=== PATIENT | female | born 2000 | race Caucasian/White ===

== ENCOUNTER 2018-08-22 13:57 | Emergency (ER) | payer OTHER ==
[2018-08-22 15:07] LABS: Appearance SLIGHTLY CLOUDY (CLEAR); Bilirubin NEGATIVE (NEGATIVE); Blood NEGATIVE Ery/ul (0-5); Epithelial Cells RARE /HPF (FEW); Glucose NEGATIVE (NEGATIVE); Ketones NEGATIVE (NEGATIVE); Leukocyte Esterase NEGATIVE (NEGATIVE); Mucus SLIGHT /HPF (NEGATIVE); Nitrite NEGATIVE (NEGATIVE); Protein,Urine Dip NEGATIVE (Negative); Specific Gravity 1.013 (1.005-1.025); Urobilinogen NEGATIVE mg/dL (0-1)
[2018-08-22 15:31] VITALS: O2SAT 99
--- NOTE | 2018-08-22 16:24 | XRAY ---
Indication: Spotting. Two-dimensional transabdominal early OB ultrasound performed. Comparison: One day earlier Again there is a single viable intrauterine measuring 11 weeks 1 day with heart rate 169 BPM. Left and right ovaries unremarkable. No new/acute findings.
--- NOTE | 2018-08-22 16:40 | ERPHSYRPT ---
- History of Present Illness Source: patient Exam Limitations: no limitations Patient Subjective Stated Complaint: pt ambulated to treatment area complaining of abd cramping and vaginal bleeding. states cramping feels like a pulling, quick sharp pain, bleeding is light pink to brown, very light, noticed when she wipes. Dr. Mendez told her to come to the ER or call if any problems. pt states she had a miscarriage this summer 2017 Triage Nursing Assessment: Pt ambulated to treatment room, denies pain at this time, states pain is intermittent and sharp and quick. abd SNT with + BS. urine sample obtained clear yellow urine noted. states some pink, brown tinged mucous discharge when she wipes. skin smith, warm and dry. Physician History: Pt is a 18 y/o with a previous miscarriage. She is now again at 14 weeks, and she had some spotting and had some cramping in her abdomen, and decided to come to the ER to be evaluated. Timing/Duration: today Activites at Onset: none Quality: cramping Pain Radiation: none Severity of Pain-Max: mild Severity of Pain-Current: mild Modifying Factors: Improves With: nothing Associated Symptoms: denies symptoms Allergies/Adverse Reactions: polystyrene sulfonate Adverse Reaction (Verified 08/22/18 14:22) Home Medications: Vits W-Ca,Fe,FA(<1Mg) [] 1 each PO DAILY 08/22/18 [History] Hx Tetanus, Diphtheria Vaccination/Date Given: Yes Hx Influenza Vaccination/Date Given: No Hx Pneumococcal Vaccination/Date Given: No - Review of Systems Constitutional: No Fever, No Chills Respiratory: No Cough, No Dyspnea Cardiac: No Chest Pain, No Edema, No Syncope Abdominal/Gastrointestinal: No Abdominal Pain, No Nausea, No Vomiting, No Diarrhea Genitourinary Symptoms: (spotting) - Past Medical History Pertinent Past Medical History: No Neurological History: No Pertinent History ENT History: No Pertinent History Cardiac History: No Pertinent History Respiratory History: No Pertinent History Endocrine Medical History: No Pertinent History Musculoskeletal History: No Pertinent History GI Medical History: No Pertinent History History: No Pertinent History Psycho-Social History: No Pertinent History Female Reproductive Disorders: No Pertinent History - Past Surgical History Neuro Surgical History: No Pertinent History Cardiac: No Pertinent History Respiratory: No Pertinent History Gastrointestinal: No Pertinent History Genitourinary: No Pertinent History Musculoskeletal: No Pertinent History Female Surgical History: Dilation & Curettage Other Surgical History: D&C from miscarriage summer 2017 - Social History Smoking Status: Never smoker Exposure to second hand smoke: No Drug Use: none Patient Lives Alone: No - Female History Hx Last Menstrual Period: June 06, 2018 Hx Now: Yes Expected Date of Delivery: 03/12/19 Gestational Age: 11 weeks - Nursing Vital Signs Nursing Vital Signs: Initial Vital Signs Temperature 98.3 F 08/22/18 13:58 Pulse Rate 82 08/22/18 13:58 Respiratory Rate 16 08/22/18 13:58 Blood Pressure 134/83 08/22/18 13:58 O2 Sat by Pulse Oximetry 95 08/22/18 13:58 Pain Scale Pain Intensity 3 - Physical Exam General Appearance: no apparent distress, alert Respiratory Exam: normal breath sounds, lungs clear, No respiratory distress Cardiovascular Exam: regular rate/rhythm, normal heart sounds, normal peripheral pulses Gastrointestinal/Abdomen Exam: soft, No tenderness, No mass SpO2: 99 - Course Nursing assessment & vital signs reviewed: Yes Ordered Tests: Active Orders 24 hr Category Date Time Status OB <14 WKS 1ST GESTATION [US] Stat Exams 08/22/18 14:29 Completed HCG QUALITATIVE,SERUM Stat Lab 08/22/18 15:00 Completed HCG, Quantitative (Inhouse) Stat Lab 08/22/18 15:41 Completed UA W/RFX UR CULTURE Stat Lab 08/22/18 14:29 Completed Lab/Rad Data: Laboratory Results 08/22/18 08/22/18 08/22/18 Range/Units 15:41 15:00 14:29 Beta HCG, Quant [id number] mIU/ml Serum , Qual POSITIVE (Negative) Urine Color YELLOW (YELLOW) Urine Appearance SLIGHTLY CLOUDY (CLEAR) Urine pH 6.0 (5-6) Ur Specific [place] 1.013 (1.005-1.025) Urine Protein NEGATIVE (Negative) Urine Ketones NEGATIVE (NEGATIVE) Urine Blood NEGATIVE (0-5) [place]/ul Urine Nitrite NEGATIVE (NEGATIVE) Urine Bilirubin NEGATIVE (NEGATIVE) Urine Urobilinogen NEGATIVE (0-1) mg/dL Ur Leukocyte Esterase NEGATIVE (NEGATIVE) Urine WBC (Auto) NONE (0-5) /HPF Urine RBC (Auto) NONE (0-2) /HPF U Epithel Cells (Auto) RARE (FEW) /HPF Urine Mucus (Auto) SLIGHT (NEGATIVE) /HPF Urine Culture Reflexed NO (NO) Urine Glucose NEGATIVE (NEGATIVE) mg/dL - Progress Progress: improved Air Movement: good Progress Note: 08/22/18 16:39 Pt had a repeat US that showed viable . HCG levels are normal for gestational age. Pt is free for d/c. Blood Culture(s) Obtained: No Antibiotics given: No Will see patient in: office Counseled pt/family regarding: need for follow-up - Departure Time of Disposition: 16:40 Departure Disposition: Home Clinical Impression: Vaginal spotting Condition: Stable Critical Care Time: No Referrals: PADMINI MENDEZ MD [Primary Care Provider] -
[2018-08-22 17:03] VITALS: BP 116/70; PULSE 74
== END 2018-08-22 17:02 | disposition home or self-care (01) ==
LOC: ED 13:57
DX: O26.851 Spotting complicating pregnancy, first trimester (principal)
CPT/HCPCS: 36415; 76801; 81001; 81025; 84702; 99284

== ENCOUNTER 2018-09-17 10:51 | Emergency (ER) | payer OTHER ==
[2018-09-17] MEDS ORDERED: Sodium Chloride 0.9% 1000 ML 1,000 ML ONE (11:41)
[2018-09-17] MEDS: Sodium Chloride 0.9% 1000 ML 1,000 ML IV STA (11:43)
[2018-09-17 11:57] LABS: BASOPHIL % 0.2 % (0.0-0.4); Basophil (Absolute #) 0.02 (0-0.4); Granulocyte Absolute (ANC) 7.25 (1.4-6.9); Hematocrit 34.7 % (35-47); Hemoglobin 12.3 gm/dl (12.0-16.0); Lymphocyte (Absolute #) 1.46 (1.0-4.6); Lymphocytes % 15.3 % (24.0-44.0); Mean Cell Volume 91.8 fl (78-100); Mean Corpuscular Hemoglobin 32.5 pg (26-32); Mean Corpuscular Hgb Concent. 35.4 g/dl (32-36); Mean Platelet Volume 9.1 fl (6-9.5); Monocyte (Absolute #) 0.72 (0.0-1.3); Monocytes % 7.5 % (0.0-12.0); Platelet Count 239 K/mm3 (150-450); Red Blood Count 3.78 M/mm3 (4.1-5.4); Red Cell Distribution Width 12.8 % (11.5-14.0); White Blood Count 9.6 K/mm3 (4.0-10.5)
[2018-09-17 12:07] VITALS: O2SAT 100
[2018-09-17 12:08] LABS: Appearance CLOUDY (CLEAR); Bacteria MODERATE /HPF (NEGATIVE); Bilirubin NEGATIVE (NEGATIVE); Blood NEGATIVE Ery/ul (0-5); Epithelial Cells MODERATE /HPF (FEW); Glucose NEGATIVE (NEGATIVE); Ketones TRACE (NEGATIVE); Leukocyte Esterase LARGE (NEGATIVE); Mucus SLIGHT /HPF (NEGATIVE); Nitrite NEGATIVE (NEGATIVE); Protein,Urine Dip 30 (Negative); Specific Gravity 1.021 (1.005-1.025); Urobilinogen NEGATIVE mg/dL (0-1); WBC 26-50 /HPF (0-5)
[2018-09-17 12:21] LABS: ALBUMIN 3.9 g/dL (3.5-5.0); ALKALINE PHOSPHATASE 61 U/L (38-126); ANION GAP 11.3 MEQ/L (5-15); BLOOD UREA NITROGEN 10 mg/dL (7-17); CHLORIDE 106 mmol/L (98-107); Calcium 8.8 mg/dL (8.4-10.2); Carbon Dioxide 25 mmol/L (22-30); Creatinine 1 0.52 mg/dL (0.52-1.04); Glucose 74 mg/dL (74-106); SGOT/AST 23 U/L (14-36); SGPT/ALT 20 U/L (0-35); SODIUM 138 mmol/L (137-145); Total Protein 7.4 g/dL (6.3-8.2)
[2018-09-17 12:46] LABS: HCG, Quantitative (Inhouse) 74385 mIU/ml
[2018-09-17 13:10] VITALS: BP 119/74; PULSE 81
--- NOTE | 2018-09-17 13:10 | ERPHSYRPT ---
- History of Present Illness Source: patient Exam Limitations: no limitations Patient Subjective Stated Complaint: lower abd cramping since last night. is 14 weeks Triage Nursing Assessment: ambulated to room per self. skin w/d, color normal, resp easy. patient very tearful, explains that she had a miscarriage last summer and is very scared. abd soft. denies any bloody discharge. patient has bruising noted to right forearm. Physician History: Pt is a 18 y/o female that is 14 week , and she presented to the ED with complains of cramping. Pt denies dysuria, frequency or urgency and denies any vaginal bleeding. Pt states, started having severe cramping today, and secondary to h/o miscarriage, she presented to the ED. Timing/Duration: today Activites at Onset: none Quality: cramping Onset Location: RLQ, LLQ, low back pain Pain Radiation: none Severity of Pain-Max: moderate Severity of Pain-Current: moderate Prior abdominal problems: similar symptoms Modifying Factors: Improves With: nothing Associated Symptoms: denies symptoms Allergies/Adverse Reactions: polystyrene sulfonate Adverse Reaction (Verified 09/17/18 11:18) Home Medications: Vits W-Ca,Fe,FA(<1Mg) [] 1 each PO DAILY 08/22/18 [History] Hx Tetanus, Diphtheria Vaccination/Date Given: No Hx Influenza Vaccination/Date Given: No Hx Pneumococcal Vaccination/Date Given: No - Review of Systems Constitutional: No Fever, No Chills Respiratory: No Cough, No Dyspnea Cardiac: No Chest Pain, No Edema, No Syncope Abdominal/Gastrointestinal: No Abdominal Pain, No Nausea, No Vomiting, No Diarrhea Genitourinary Symptoms: Other (cramping in a female.) Musculoskeletal: Back Pain (lower back with cramping) - Past Medical History Pertinent Past Medical History: No Neurological History: No Pertinent History ENT History: No Pertinent History Cardiac History: No Pertinent History Respiratory History: No Pertinent History Endocrine Medical History: No Pertinent History Musculoskeletal History: No Pertinent History GI Medical History: No Pertinent History History: No Pertinent History Psycho-Social History: No Pertinent History Female Reproductive Disorders: No Pertinent History - Past Surgical History Past Surgical History: Yes Neuro Surgical History: No Pertinent History Cardiac: No Pertinent History Respiratory: No Pertinent History Gastrointestinal: No Pertinent History Genitourinary: No Pertinent History Musculoskeletal: No Pertinent History Female Surgical History: Dilation & Curettage Other Surgical History: D&C from miscarriage summer 2017 - Social History Smoking Status: Never smoker Exposure to second hand smoke: No Drug Use: none Patient Lives Alone: No - Female History Hx Now: Yes (14 weeks) - Nursing Vital Signs Nursing Vital Signs: Initial Vital Signs Temperature 97.7 F 09/17/18 11:01 Pulse Rate 92 H 09/17/18 11:01 Respiratory Rate 16 09/17/18 11:01 Blood Pressure 119/71 09/17/18 11:01 O2 Sat by Pulse Oximetry 99 09/17/18 11:01 Pain Scale Pain Intensity 7 - Physical Exam General Appearance: no apparent distress, alert Eye Exam: PERRL/EOMI, eyes nml inspection Ears, Nose, Throat Exam: normal ENT inspection, TMs normal, pharynx normal, moist mucous membranes Neck Exam: normal inspection, non-tender, supple, full range of motion Respiratory Exam: normal breath sounds, lungs clear, No respiratory distress Cardiovascular Exam: regular rate/rhythm, normal heart sounds, normal peripheral pulses Gastrointestinal/Abdomen Exam: soft, No tenderness, No mass Pelvic Exam: not done Back Exam: normal inspection, normal range of motion, No CVA tenderness, No vertebral tenderness Extremity Exam: normal inspection, normal range of motion, pelvis stable Neurologic Exam: alert, oriented x 3, cooperative, gaming commissioner II-XII nml as tested, normal mood/affect, sensation nml, No motor deficits SpO2: 100 - Course Nursing assessment & vital signs reviewed: Yes - Radiology Ultrasound Exam OB Ultrasound: Other (Discussed with tech. Normal US for age of .) Ordered Tests: Active Orders 24 hr Category Date Time Status IV Insertion STAT Care 09/17/18 11:15 Active OB >14 WKS 1st GESTATION [US] Stat Exams 09/17/18 11:16 Taken CBC W DIFF Stat Lab 09/17/18 11:51 Completed CMP Stat Lab 09/17/18 11:51 Completed CULTURE,URINE Stat Lab 09/17/18 11:40 Received HCG, Quantitative (Inhouse) Stat Lab 09/17/18 11:51 Completed UA W/RFX UR CULTURE Stat Lab 09/17/18 11:40 Completed Medication Summary Discontinued Medications Generic Name Dose Route Start Last Admin Trade Name Freq PRN Reason Stop Dose Admin Sodium Chloride 1,000 mls @ 999 mls/hr 09/17/18 11:15 09/17/18 11:43 Sodium Chloride 0.9% 1000 Ml IV 09/17/18 12:15 999 mls/hr .Q1H1M STA Administration Sodium Chloride Confirm 09/17/18 11:41 Sodium Chloride 0.9% 1000 Ml Administered 09/17/18 11:42 Dose 1,000 mls @ ud .ROUTE .STK-MED ONE Lab/Rad Data: Laboratory Result Diagrams 09/17/18 11:51 09/17/18 11:51 Laboratory Results 09/17/18 09/17/18 09/17/18 Range/Units 11:51 11:51 11:40 WBC 9.6 (4.0-10.5) K/mm3 RBC 3.78 L (4.1-5.4) M/mm3 Hgb 12.3 (12.0-16.0) gm/dl Hct 34.7 L (35-47) % MCV 91.8 (78-100) fl MCH 32.5 H (26-32) pg MCHC 35.4 (32-36) g/dl RDW 12.8 (11.5-14.0) % Plt Count 239 (150-450) K/mm3 MPV 9.1 (6-9.5) fl Gran % 76.0 H (36.0-66.0) % Eos # (Auto) 0.10 (0-0.5) Absolute Lymphs (auto) 1.46 (1.0-4.6) Absolute Monos (auto) 0.72 (0.0-1.3) Lymphocytes % 15.3 L (24.0-44.0) % Monocytes % 7.5 (0.0-12.0) % Eosinophils % 1.0 (0.00-5.0) % Basophils % 0.2 (0.0-0.4) % Absolute Granulocytes 7.25 H (1.4-6.9) Basophils # 0.02 (0-0.4) Sodium 138 (137-145) mmol/L Potassium 4.0 (3.5-5.1) mmol/L Chloride 106 (98-107) mmol/L Carbon Dioxide 25 (22-30) mmol/L Anion Gap 11.3 (5-15) MEQ/L BUN 10 (7-17) mg/dL Creatinine 0.52 (0.52-1.04) mg/dL Estimated GFR > 60.0 ML/MIN Glucose 74 (74-106) mg/dL Calcium 8.8 (8.4-10.2) mg/dL Total Bilirubin 0.60 (0.2-1.3) mg/dL AST 23 (14-36) U/L ALT 20 (0-35) U/L Alkaline Phosphatase 61 (38-126) U/L Serum Total Protein 7.4 (6.3-8.2) g/dL Albumin 3.9 (3.5-5.0) g/dL Beta HCG, Quant 32258 mIU/ml Urine Color YELLOW (YELLOW) Urine Appearance CLOUDY (CLEAR) Urine pH 8.0 (5-6) Ur Specific [place] 1.021 (1.005-1.025) Urine Protein 30 (Negative) Urine Ketones TRACE (NEGATIVE) Urine Blood NEGATIVE (0-5) Eugene/ul Urine Nitrite NEGATIVE (NEGATIVE) Urine Bilirubin NEGATIVE (NEGATIVE) Urine Urobilinogen NEGATIVE (0-1) mg/dL Ur Leukocyte Esterase LARGE (NEGATIVE) Urine WBC (Auto) 26-50 (0-5) /HPF Urine RBC (Auto) NONE (0-2) /HPF U Epithel Cells (Auto) MODERATE (FEW) /HPF Urine Bacteria (Auto) MODERATE (NEGATIVE) /HPF Urine Mucus (Auto) SLIGHT (NEGATIVE) /HPF Urine Culture Reflexed YES (NO) Urine Glucose NEGATIVE (NEGATIVE) mg/dL - Progress Progress: improved Air Movement: good Progress Note: 09/17/18 13:10 Pt had lab work that were normal. Her UA showed UTI and US of OB was normal for age. Pt declined Cerftriaxone IV, but is willing to have PO ABX for her UTI. Pt should f/u with her OB next week. Blood Culture(s) Obtained: No Antibiotics given: Yes Will see patient in: office Counseled pt/family regarding: need for follow-up - Departure Time of Disposition: 13:13 Departure Disposition: Home Clinical Impression: Abdominal cramping, Abdominal cramping affecting Condition: Stable Critical Care Time: No Referrals: PADMINI MENDEZ MD [Primary Care Provider] - Additional Instructions: Take ABX as ordered, and f/u with Ob. Prescriptions: Cefdinir [Omnicef] 300 mg PO BID 7 Days #14 capsule
--- NOTE | 2018-09-17 21:39 | XRAY ---
Indication: Cramping. Two-dimensional OB ultrasound performed. Comparison: August 22, 2018. Again there is a single viable intrauterine . Normal 4 chamber heart with heart rate 157 BPM. Normal three-vessel cord and cord insertion. Composite gestational age is 14 weeks 6 days. Largest amniotic pocket is 3.4 cm. Posterior placenta without abruption/previa. Cervix is closed and 3.5 cm in length. Impression: Again single viable intrauterine with mean gestational age 14 weeks 6 days. Normal progression of . No new/acute findings. Comment: Preliminary report was given.
== END 2018-09-17 13:27 | disposition home or self-care (01) ==
LOC: ED 10:51
DX: O26.892 Other specified pregnancy related conditions, second trimester (principal); Z3A.14 14 weeks gestation of pregnancy; R10.9 Unspecified abdominal pain
CPT/HCPCS: 36000; 36415; 76805; 80053; 81001; 84702; 85025; 87086; 96360; 99284

== ENCOUNTER 2019-01-05 20:10 | Observation (INO) | payer OTHER ==
[2019-01-05 20:42] LABS: Appearance SLIGHTLY CLOUDY (CLEAR); Bacteria RARE /HPF (NEGATIVE); Bilirubin NEGATIVE (NEGATIVE); Blood NEGATIVE Ery/ul (0-5); Epithelial Cells FEW /HPF (FEW); Glucose NEGATIVE (NEGATIVE); Ketones TRACE (NEGATIVE); Leukocyte Esterase LARGE (NEGATIVE); Mucus SLIGHT /HPF (NEGATIVE); Nitrite NEGATIVE (NEGATIVE); Protein,Urine Dip NEGATIVE (Negative); RBC 0-2 /HPF (0-2); Specific Gravity 1.015 (1.005-1.025); Urobilinogen NEGATIVE mg/dL (0-1); WBC 26-50 /HPF (0-5)
[2019-01-05] MEDS ORDERED: Lactated Ringers 1,000 ML IV ONE (21:47)
[2019-01-05] MEDS ORDERED: Lactated Ringers 1,000 ML IV SCH (22:00)
[2019-01-05] MEDS ORDERED: ROCEPHIN 1 Gm-D5w 50 ml Bag** 1 G/50 ML IVPB IV ONE (22:00)
[2019-01-05 22:24] LABS: Granulocyte Absolute (ANC) 12.37 (1.4-6.9); Hematocrit 33.7 % (35-47); Hemoglobin 11.6 gm/dl (12.0-16.0); Mean Cell Volume 96.8 fl (78-100); Mean Corpuscular Hemoglobin 33.3 pg (26-32); Mean Corpuscular Hgb Concent. 34.4 g/dl (32-36); Mean Platelet Volume 9.3 fl (6-9.5); Platelet Count 224 K/mm3 (150-450); Red Blood Count 3.48 M/mm3 (4.1-5.4); Red Cell Distribution Width 12.4 % (11.5-14.0); White Blood Count 16.5 K/mm3 (4.0-10.5)
[2019-01-05] MEDS ORDERED: Colace 100 MG ONE (22:24)
[2019-01-05 22:35] LABS: ALBUMIN 3.3 g/dL (3.5-5.0); ALKALINE PHOSPHATASE 105 U/L (38-126); ANION GAP 9.8 MEQ/L (5-15); BLOOD UREA NITROGEN 6 mg/dL (7-17); CHLORIDE 105 mmol/L (98-107); Calcium 8.5 mg/dL (8.4-10.2); Carbon Dioxide 25 mmol/L (22-30); Glucose 87 mg/dL (74-106); Potassium 3.5 mmol/L (3.5-5.1); SGOT/AST 19 U/L (14-36); SGPT/ALT 14 U/L (0-35); SODIUM 137 mmol/L (137-145); Total Protein 6.6 g/dL (6.3-8.2)
[2019-01-05 22:53] LABS: Eosinophil 1 % (0.00-3.0); Lymphocytes 22 % (24-44); Monocyte 7 % (0.0-12.0); Neutrophils 70 % (36.0-66.0); Platelet Estimate NORMAL (NORMAL); Total Cells Counted 100
[2019-01-06 06:47] VITALS: BP 107/60; PULSE 83
[2019-01-06] MEDS ORDERED: Colace 100 MG PO ONE (22:23)
== END 2019-01-05 23:39 | disposition home or self-care (01) ==
LOC: OB 20:10
PROVIDERS: ADMIT Family Medicine; ATTEND Family Medicine
DX: Z34.83 Encounter for supervision of other normal pregnancy, third trimester (principal)
CPT/HCPCS: 36415; 80053; 81001; 82962; 85025; 87086; G0378; J0696; A9270-GY

== ENCOUNTER 2019-02-16 22:21 | Observation (INO) | payer OTHER ==
[2019-02-16 23:10] LABS: Appearance CLEAR (CLEAR); Bacteria NONE SEEN /HPF (NEGATIVE); Bilirubin NEGATIVE (NEGATIVE); Blood NEGATIVE Ery/ul (0-5); Epithelial Cells RARE /HPF (FEW); Glucose NEGATIVE (NEGATIVE); Ketones NEGATIVE (NEGATIVE); Leukocyte Esterase SMALL (NEGATIVE); Mucus SLIGHT /HPF (NEGATIVE); Nitrite NEGATIVE (NEGATIVE); Protein,Urine Dip NEGATIVE (Negative); Specific Gravity 1.008 (1.005-1.025); Urobilinogen NEGATIVE mg/dL (0-1)
[2019-02-16 23:19] VITALS: O2SAT 97
[2019-02-17 00:04] LABS: Hematocrit 33.5 % (35-47); Hemoglobin 11.4 gm/dl (12.0-16.0); Mean Cell Volume 94.6 fl (78-100); Mean Corpuscular Hemoglobin 32.2 pg (26-32); Platelet Count 211 K/mm3 (150-450); Red Blood Count 3.54 M/mm3 (4.1-5.4); Red Cell Distribution Width 12.7 % (11.5-14.0); White Blood Count 12.1 K/mm3 (4.0-10.5)
[2019-02-17 00:33] VITALS: BP 113/57; PULSE 85
[2019-02-17 00:38] LABS: ALBUMIN 3.4 g/dL (3.5-5.0); ALKALINE PHOSPHATASE 141 U/L (38-126); ANION GAP 11.2 MEQ/L (5-15); BLOOD UREA NITROGEN 8 mg/dL (7-17); CHLORIDE 109 mmol/L (98-107); Calcium 8.9 mg/dL (8.4-10.2); Carbon Dioxide 21 mmol/L (22-30); Creatinine 1 0.46 mg/dL (0.52-1.04); Glucose 79 mg/dL (74-106); SGOT/AST 24 U/L (14-36); SGPT/ALT 14 U/L (0-35); SODIUM 138 mmol/L (137-145); Total Protein 6.7 g/dL (6.3-8.2); Uric Acid 4.8 mg/dL (2.6-6.0)
[2019-02-17 01:05] LABS: BAND 2 % (0.0-2.0); Lymphocytes 16 % (24-44); Monocyte 15 % (0.0-12.0); Neutrophils 67 % (36.0-66.0); Platelet Estimate NORMAL (NORMAL); Total Cells Counted 100
== END 2019-02-17 01:24 | disposition home or self-care (01) ==
LOC: OB 22:21
PROVIDERS: ADMIT Family Medicine; ATTEND Family Medicine
DX: Z34.83 Encounter for supervision of other normal pregnancy, third trimester (principal)
CPT/HCPCS: 36415; 80053; 81001; 84550; 85025; G0378

== ENCOUNTER 2019-02-22 10:01 | Observation (INO) | payer OTHER ==
[2019-02-22 11:07] VITALS: BP 119/65; PULSE 99; O2SAT 98
--- NOTE | 2019-02-22 11:38 | XRAY ---
Indication: Evaluate ERUM. Limited OB ultrasound performed to evaluate ERUM. There is a single viable intrauterine with heart rate 153 BPM. Four-quadrant ERUM is 16.8 cm, previously 10.3 cm October 16, 2018.
[2019-02-22 12:50] LABS: Amphetamine,Urine NEGATIVE (NEGATIVE); Barbiturate,Urine NEGATIVE (NEGATIVE); Benzodiazepine,Urine NEGATIVE (NEGATIVE); Cocaine,Urine NEGATIVE (NEGATIVE); Methadone,Urine NEGATIVE (NEGATIVE); Opiate,Urine NEGATIVE (NEGATIVE); PCP,Urine NEGATIVE (NEGATIVE); THC,Urine NEGATIVE (NEGATIVE)
== END 2019-02-22 13:25 | disposition home or self-care (01) ==
LOC: OB 10:01
PROVIDERS: ADMIT Family Medicine; ATTEND Family Medicine
DX: Z34.83 Encounter for supervision of other normal pregnancy, third trimester (principal)
CPT/HCPCS: 59025; 76815; 80307; G0378

== ENCOUNTER 2019-02-27 10:39 | Observation (INO) | payer OTHER ==
[2019-02-27 10:54] VITALS: O2SAT 98
[2019-02-27 11:52] VITALS: BP 113/71; PULSE 94
[2019-02-27] MEDS ORDERED: Lactated Ringers 1,000 ML IV ONE (11:55)
[2019-02-27 12:17] LABS: Hematocrit 34.3 % (35-47); Hemoglobin 11.6 gm/dl (12.0-16.0); Mean Cell Volume 93.5 fl (78-100); Mean Corpuscular Hemoglobin 31.6 pg (26-32); Mean Corpuscular Hgb Concent. 33.8 g/dl (32-36); Mean Platelet Volume 9.8 fl (6-9.5); Platelet Count 195 K/mm3 (150-450); Red Blood Count 3.67 M/mm3 (4.1-5.4); Red Cell Distribution Width 12.9 % (11.5-14.0); White Blood Count 10.6 K/mm3 (4.0-10.5)
[2019-02-27 12:29] LABS: ALBUMIN 3.5 g/dL (3.5-5.0); ALKALINE PHOSPHATASE 159 U/L (38-126); ANION GAP 12.6 MEQ/L (5-15); BLOOD UREA NITROGEN 6 mg/dL (7-17); CHLORIDE 110 mmol/L (98-107); Calcium 8.8 mg/dL (8.4-10.2); Carbon Dioxide 20 mmol/L (22-30); Creatinine 1 0.39 mg/dL (0.52-1.04); Glucose 83 mg/dL (74-106); Potassium 3.8 mmol/L (3.5-5.1); SGOT/AST 22 U/L (14-36); SGPT/ALT 14 U/L (0-35); SODIUM 139 mmol/L (137-145); Total Protein 6.9 g/dL (6.3-8.2)
[2019-02-27 12:36] LABS: Appearance CLEAR (CLEAR); Bacteria RARE /HPF (NEGATIVE); Bilirubin NEGATIVE (NEGATIVE); Blood NEGATIVE Ery/ul (0-5); Epithelial Cells RARE /HPF (FEW); Glucose NEGATIVE (NEGATIVE); Ketones NEGATIVE (NEGATIVE); Leukocyte Esterase MODERATE (NEGATIVE); Nitrite NEGATIVE (NEGATIVE); Protein,Urine Dip NEGATIVE (Negative); Specific Gravity 1.004 (1.005-1.025); Urobilinogen NEGATIVE mg/dL (0-1)
[2019-02-27 13:12] LABS: BAND 2 % (0.0-2.0); Lymphocytes 16 % (24-44); Monocyte 3 % (0.0-12.0); Neutrophils 79 % (36.0-66.0); Platelet Estimate NORMAL (NORMAL); Total Cells Counted 100; Toxic Granulation 1+
[2019-02-27] MEDS ORDERED: Lactated Ringers 1,000 ML IV SCH (14:30)
== END 2019-02-27 14:55 | disposition home or self-care (01) ==
LOC: ED 10:39 → OB 11:05
PROVIDERS: ADMIT Family Medicine; ATTEND Family Medicine
DX: O26.893 Other specified pregnancy related conditions, third trimester (principal); E86.0 Dehydration; R19.7 Diarrhea, unspecified; Z3A.39 39 weeks gestation of pregnancy
CPT/HCPCS: 36415; 80053; 81001; 85025; 96360; 99283; G0378

== ENCOUNTER 2019-03-13 08:36 | Inpatient (IN) | payer OTHER ==
[2019-03-13] MEDS ORDERED: BRETHINE 1 MG/ML SQ PRN (16:48)
[2019-03-13 17:26] LABS: Amphetamine,Urine NEGATIVE (NEGATIVE); Barbiturate,Urine NEGATIVE (NEGATIVE); Benzodiazepine,Urine NEGATIVE (NEGATIVE); Cocaine,Urine NEGATIVE (NEGATIVE); Methadone,Urine NEGATIVE (NEGATIVE); Opiate,Urine NEGATIVE (NEGATIVE); PCP,Urine NEGATIVE (NEGATIVE); THC,Urine NEGATIVE (NEGATIVE)
[2019-03-13] MEDS ORDERED: Cervidil 10 MG VAG SCH (18:00)
[2019-03-13 19:53] LABS: Hematocrit 33.6 % (35-47); Hemoglobin 11.3 gm/dl (12.0-16.0); Mean Cell Volume 91.8 fl (78-100); Mean Corpuscular Hgb Concent. 33.6 g/dl (32-36); Platelet Count 213 K/mm3 (150-450); Red Blood Count 3.66 M/mm3 (4.1-5.4); Red Cell Distribution Width 13.3 % (11.5-14.0); White Blood Count 12.2 K/mm3 (4.0-10.5)
[2019-03-13 19:59] LABS: Mean Corpuscular Hemoglobin 30.8 pg (26-32)
[2019-03-13 23:59] LABS: Basophil 1 % (0.0-1.0); Eosinophil 4 % (0.00-3.0); Lymphocytes 16 % (24-44); Monocyte 3 % (0.0-12.0); Neutrophils 76 % (36.0-66.0); Total Cells Counted 100
[2019-03-14] LABS: Platelet Estimate NORMAL (NORMAL); Poikilocytosis 1+; Polychromasia RARE
[2019-03-14] MEDS ORDERED: XYLOCAINE 1% HCL 20 ML MDV IJ PRN (05:17)
[2019-03-14] MEDS ORDERED: Zofran 4 MG/2 ML VIAL IV PRN (05:17)
[2019-03-14] MEDS ORDERED: Phenergan 25 MG INJ IV PRN (05:17)
[2019-03-14] MEDS ORDERED: TYLENOL EXTRA STRENGTH 500 MG PO PRN (05:17)
[2019-03-14] MEDS ORDERED: PITOCIN 30 UNITS/ LR 500 ML 500 ML IV SCH ×2 (05:30)
[2019-03-14] MEDS: Lactated Ringers 1,000 ML IV SCH ×4 (07:27→20:23)
[2019-03-14] MEDS ORDERED: Lactated Ringers 1,000 ML IV ONE (16:56)
[2019-03-14] MEDS ORDERED: OB EPIDURAL NAROPIN/SUFENTANIL IN NACL EPIDURAL PRN (16:56)
[2019-03-14] MEDS ORDERED: Ephedrine Sulfate 50 MG/ML IV PRN (16:56)
[2019-03-14] MEDS ORDERED: XYLOCAINE 2%/Epi 1:200000 20ML VIAL MPF ONE ×2 (18:22→20:59)
[2019-03-14] MEDS ORDERED: Reglan 10 MG/2 ML IV SCH (20:15)
[2019-03-14] MEDS ORDERED: BICITRA 30 ML CUP PO SCH (20:15)
[2019-03-14] MEDS ORDERED: Pepcid 20 MG VIAL IV SCH (20:15)
[2019-03-14] MEDS ORDERED: Lactated Ringers 1,000 ML IV SCH (20:30)
[2019-03-14] MEDS ORDERED: CEFAZOLIN 2 GM-D5W BAG** 2 GM/50 ML ML IV SCH (20:30)
[2019-03-14 20:35] LABS: Hematocrit 35.4 % (35-47); Hemoglobin 11.8 gm/dl (12.0-16.0); Mean Cell Volume 93.4 fl (78-100); Mean Corpuscular Hemoglobin 31.1 pg (26-32); Mean Corpuscular Hgb Concent. 33.3 g/dl (32-36); Mean Platelet Volume 9.9 fl (6-9.5); Platelet Count 204 K/mm3 (150-450); Red Blood Count 3.79 M/mm3 (4.1-5.4); Red Cell Distribution Width 13.2 % (11.5-14.0)
[2019-03-14 20:39] LABS: Appearance CLEAR (CLEAR); Bilirubin NEGATIVE (NEGATIVE); Blood MODERATE Ery/ul (0-5); Glucose NEGATIVE (NEGATIVE); Ketones TRACE (NEGATIVE); Leukocyte Esterase NEGATIVE (NEGATIVE); Nitrite NEGATIVE (NEGATIVE); Protein,Urine Dip NEGATIVE (Negative); Specific Gravity 1.004 (1.005-1.025); Urobilinogen NEGATIVE mg/dL (0-1)
[2019-03-14 20:46] LABS: INR 1.02 (0.8-3.0); PROTIME 11.5 SECONDS (9.95-12.35)
[2019-03-14 20:48] LABS: PTT 26.1 SECONDS (25.3-37.0)
[2019-03-14] MEDS ORDERED: Pitocin 10 UNITS/ML ONE (20:59)
[2019-03-14] MEDS ORDERED: Xylocaine-Mpf 2% 5 Ml Vial ONE (21:29)
[2019-03-14] MEDS ORDERED: Naropin 0.5% 30 ML VIAL ONE (21:29)
[2019-03-14] MEDS ORDERED: Decadron 4 MG INJ ONE (21:29)
[2019-03-14] MEDS ORDERED: Astramorph-Pf 5 MG/10 ML ONE (21:31)
[2019-03-14 22:59] LABS: ABO TYPING O; Antibody Screen NEGATIVE (NEGATIVE); RH TYPING POSITIVE
[2019-03-14] MEDS ORDERED: Phenergan 25 MG INJ IM PRN (23:15)
[2019-03-14] MEDS ORDERED: LANSINOH 40 GM TOP PRN (23:19)
[2019-03-14] MEDS ORDERED: Anucort-HC SUPPOSITORY PR PRN (23:19)
[2019-03-14] MEDS ORDERED: CORTISONE 1% CREAM TP PRN (23:19)
[2019-03-14] MEDS ORDERED: Mylicon 80MG PO PRN (23:19)
[2019-03-14] MEDS ORDERED: Restoril 15 MG PO PRN (23:19)
[2019-03-14] MEDS ORDERED: Ambien 10 MG PO PRN (23:19)
[2019-03-14] MEDS ORDERED: CLARITIN 10 MG PO PRN (23:22)
[2019-03-14] MEDS ORDERED: Nubain 10 MG/ML IV PRN (23:22)
[2019-03-14] MEDS ORDERED: HOLD NARCOTIC ANALGESICS AND SEDATIVES X24 HR MC PRN (23:22)
[2019-03-14] MEDS ORDERED: DEMEROL 50 MG IV PRN (23:22)
[2019-03-14] MEDS ORDERED: Narcan 0.4 MG/ML IV PRN (23:22)
[2019-03-14] MEDS ORDERED: MORPHINE SULFATE 2 MG INJ IV PRN (23:22)
[2019-03-14] MEDS ORDERED: BENADRYL 50 MG/ML IV PRN (23:22)
[2019-03-14] MEDS: MOTRIN 400 MG PO PRN (23:28)
[2019-03-15] MEDS: PERCOCET TABLET 5/325MG PO PRN ×6 (00:17→23:02)
[2019-03-15] MEDS: Dextrose 5%-Lr IV Solution 1000 ML 1,000 ML IV SCH ×2 (04:26→12:23)
[2019-03-15 05:02] LABS: Hematocrit 30.6 % (35-47); Hemoglobin 10.2 gm/dl (12.0-16.0); Mean Cell Volume 93.6 fl (78-100); Mean Corpuscular Hgb Concent. 33.3 g/dl (32-36); Mean Platelet Volume 10.7 fl (6-9.5); Platelet Count 185 K/mm3 (150-450); Red Blood Count 3.27 M/mm3 (4.1-5.4); Red Cell Distribution Width 13.1 % (11.5-14.0); White Blood Count 21.2 K/mm3 (4.0-10.5)
[2019-03-15 05:06] LABS: Mean Corpuscular Hemoglobin 31.1 pg (26-32)
[2019-03-15] MEDS: MOTRIN 400 MG PO PRN ×3 (05:28→18:11)
[2019-03-15 05:42] LABS: ANISOCYTOSIS RARE; BAND 7 % (0.0-2.0); Lymphocytes 6 % (24-44); Monocyte 3 % (0.0-12.0); Neutrophils 84 % (36.0-66.0); Platelet Estimate NORMAL (NORMAL); Poikilocytosis RARE; Polychromasia RARE; Total Cells Counted 100
--- NOTE | 2019-03-15 08:16 | OP ---
SURGERY DATE/TIME: 03/14/20192049 PREOPERATIVE DIAGNOSES: 1) Non-reassuring heart tones. 2) Term intrauterine . POSTOPERATIVE DIAGNOSES: 1) Non-reassuring heart tones. 2) Term intrauterine . PROCEDURE: Primary low transverse section. SURGEON: Lalito Rivera M.D. ANESTHESIA: Epidural by Donald Rubin CRNA. ESTIMATED BLOOD LOSS: 400 cc. IV FLUIDS: 2 liters of crystalloid. URINE OUTPUT: 600 cc clear straw-colored urine. SPECIMEN: Placenta was sent for pathology. DESCRIPTION OF PROCEDURE: After informed written consent was obtained, the patient was taken to the operating room. She had a previously placed laboring epidural which was bolused prior to the procedure. She was prepped and draped in the usual sterile fashion. After adequate level of anesthesia was assessed, a low transverse skin incision was made by knife and carried down to the subcutaneous fat to the level of the fascia. The fascia was nicked on both sides of the midline horizontal and extended in horizontal using curved Brown scissors. The superior free edge of the fascia was grasped with Thony clamps and the underlying rectus muscles were dissected free. The same was repeated inferiorly. The peritoneal cavity was then opened in horizontal fashion and extended bluntly. Bladder blade was inserted and a bladder flap was created and reflected over the lower uterine segment. Horizontal uterine incision was made by knife and carried down to the level of the amniotic membranes which were carefully artificially ruptured. A viable male infant with a nuchal cord x1 was reduced in vertex presentation. He voided and had meconium on the operative field. Oropharynx and nares were bulb suctioned free and he immediately had a strong cry and vigorous upon delivery. The cord was clamped and cut and he was handed off to the awaiting nursery team. The placenta was manually extracted from the uterus. The uterus was exteriorized. The uterine cavity was sponge curetted clean with a lap sponge and the uterine incision was closed with #1 chromic in a running locked fashion with good closure and good hemostasis. Posterior cul-de-sac was wiped free of blood and clot with a moist lap sponge and the uterus was then returned to the peritoneal cavity. The lateral gutters were wiped free of blood and clot. Again, the uterine incision was noted to have good closure and good hemostasis. Next, the fascia was closed with 0 Vicryl in a running fashion with good closure and good hemostasis were achieved there. The subcutaneous fat was irrigated with warm, sterile saline and any areas of bleeding were cauterized with electrocautery. Finally, the skin layer was closed with 4-0 undyed Vicryl in a running subcuticular fashion. Steri-Strips and occlusive dressing were placed over the incision. The patient was transferred to the recovery room in good condition.
[2019-03-15] MEDS ORDERED: M-M-R II Vaccine With Diluent SQ ONE (08:45)
[2019-03-15] MEDS ORDERED: Adacel Vial IM ONE (09:00)
[2019-03-15] MEDS: FERREX 150 PO SCH (09:09)
[2019-03-15] MEDS: Colace 100 MG PO SCH ×2 (09:09→21:41)
[2019-03-15 10:06] VITALS: O2SAT 99
[2019-03-15] MEDS ORDERED: DEMEROL 50 MG IV PRN (23:15)
[2019-03-15] MEDS ORDERED: NORCO 5/325 MG PO PRN (23:19)
[2019-03-16] MEDS: MOTRIN 400 MG PO PRN (02:56)
--- NOTE | 2019-03-16 08:07 | PCM.DS ---
Discharge Summary Date of Admission: 03/14/19 16:00 Admitting Physician: PADMINI MENDEZ Consults: Consults on Case 03/14/19 20:14 Notify Anesthesia Provider 03/14/19 20:16 Notify Physician OF ADMISSION Primary Care Provider: PADMINI MENDEZ Allergies Allergies polytracin Allergy (Severe, Uncoded 03/13/19 19:29) Medication given for pink eye. Medication caused eye to swell and become more reddened. Hospital Summary - Hospital Course Hospital Course: had primary c section for nonreassuring heart tones, no complications and has done well postoperatively. tolerating po, mild lochia, post -op pain is controlled. - Vitals & Intake/Output Vital Signs: Vital Signs Temperature 98.7 F 03/16/19 03:00 Pulse Rate 82 03/16/19 03:00 Respiratory Rate 16 03/16/19 03:00 Blood Pressure 94/50 03/16/19 03:00 O2 Sat by Pulse Oximetry 99 03/15/19 10:00 Intake & Output: Intake & Output 03/13/19 03/14/19 03/15/19 03/16/19 11:59 11:59 11:59 11:59 Intake Total 1375 4038 2463 Output Total 2500 Balance 1375 1538 2463 Weight 85.275 kg 85.275 kg - Lab Result Diagrams: 03/15/19 04:15 Lab Results-Last 24 Hrs: Lab Results-Last 24 Hours 03/13/19 Range/Units 13:01 Hep Bs Antigen Non Reactive (Non Reactive) Micro Results-Entire Visit: Microbiology 03/14/19 20:23 Urine Culture - Preliminary Catherized NO GROWTH TO DATE Discharge Exam General Appearance: no apparent distress, alert Eye Exam: PERRL Respiratory Exam: normal breath sounds, lungs clear, No respiratory distress Cardiovascular Exam: regular rate/rhythm, normal heart sounds Gastrointestinal/Abdomen Exam: other (incision clean, dry, intact) Extremity Exam: normal inspection, normal range of motion Skin Exam: normal color, warm, dry Final Diagnosis/Problem List - Final Discharge Diagnosis/Problem (1) delivery delivered Current Visit: Yes Status: Acute Code(s): O82 - ENCOUNTER FOR DELIVERY WITHOUT INDICATION (2) Mother currently breast-feeding Current Visit: Yes Status: Acute Code(s): XVQ1047 - - Discharge Disposition: Home, Self-Care Condition: Stable Prescriptions: New Breast Pump 1 each MC DAILY #1 each Hydrocodone/APAP 5-325 Tab^^^ [[place] 5-325 Tablet^^^] 1 tab PO Q6HPRN PRN # 28 tablet MDD 6 PRN Reason: Pain Continue Vits W-Ca,Fe,FA(<1Mg) [] 1 each PO DAILY Follow up with: PADMINI MENDEZ MD [Primary Care Provider] - 1 Week
[2019-03-16] MEDS: Colace 100 MG PO SCH (10:34)
[2019-03-16] MEDS: FERREX 150 PO SCH (10:34)
[2019-03-16 13:07] VITALS: BP 102/61; PULSE 91
== END 2019-03-16 12:20 | disposition home or self-care (01) | DRG 788 ==
LOC: OB 16:00 → OBSVTOIN 03-14 16:00
PROVIDERS: ADMIT Family Medicine; ATTEND Family Medicine
PROC: 10D00Z1 Extraction of Products of Conception, Low, Open Approach (ICD-10-PCS; principal; 2019-03-14)
DX: O76 Abnormality in fetal heart rate and rhythm complicating labor and delivery (principal); Z3A.40 40 weeks gestation of pregnancy; Z37.0 Single live birth
CPT/HCPCS: 36415; 64488; 76937; 76942; 80307; 81001; 85025; 85027; 85610; 85730; 86850; 86900; 86901; 87086; 87340; 88307; 90471; 90707; 90715; 94799; 96372; G0378; J0690; J1100; J2274; J2590; J2795; L0625; A9270-GY

== ENCOUNTER 2020-03-02 20:58 | Emergency (ER) | payer OTHER ==
[2020-03-02] MEDS ORDERED: XYLOCAINE 1% HCL 20 ML MDV IJ ONE (20:59)
--- NOTE | 2020-03-02 22:33 | ERPHSYRPT ---
- History of Present Illness Time Seen by Provider: 03/02/20 22:09 Source: patient Exam Limitations: no limitations Physician History: For the past week pt has had dysuria and hematuria; for the past 2 days low back pain; today fever up to 100.8 degrees and suprapubic pain. Allergies/Adverse Reactions: polytracin Allergy (Severe, Uncoded 03/02/20 23:03) Medication given for pink eye. Medication caused eye to swell and become more reddened. Home Medications: Norethindrone AC-Eth Estradiol [Microgestin 21 1.5-30 Tab] 1 tab PO DAILY 03/02/20 [History] Hx Tetanus, Diphtheria Vaccination/Date Given: No Hx Influenza Vaccination/Date Given: No Hx Pneumococcal Vaccination/Date Given: No Travel Risk - International Travel Have you traveled outside of the country in past 3 weeks: No (N) If Yes, where;: N - Coronavirus Screening Are you exhibiting any of the following symptoms?: No Symptoms: Fever Close contact with a COVID-19 positive Pt in past 14-21 Days: No - Review of Systems Constitutional: Fever Ears, Nose, & Throat: No Ear Pain, No Throat Pain Respiratory: No Dyspnea Cardiac: No Chest Pain Abdominal/Gastrointestinal: Abdominal Pain, No Nausea, No Vomiting, No Diarrhea Genitourinary Symptoms: Dysuria, Hematuria Musculoskeletal: Back Pain Neurological: No Headache All Other Systems: Reviewed and Negative - Past Medical History Pertinent Past Medical History: No Neurological History: No Pertinent History ENT History: No Pertinent History Cardiac History: No Pertinent History Respiratory History: No Pertinent History Endocrine Medical History: No Pertinent History Musculoskeletal History: No Pertinent History GI Medical History: No Pertinent History History: No Pertinent History Psycho-Social History: No Pertinent History Female Reproductive Disorders: No Pertinent History Other Medical History: History of ovarian cysts - Past Surgical History Past Surgical History: Yes Neuro Surgical History: No Pertinent History Cardiac: No Pertinent History Respiratory: No Pertinent History Gastrointestinal: No Pertinent History Genitourinary: No Pertinent History Musculoskeletal: No Pertinent History Female Surgical History: Dilation & Curettage Other Surgical History: D&C from miscarriage summer 2017 - Social History Smoking Status: Never smoker Exposure to second hand smoke: No Drug Use: none Patient Lives Alone: No - Nursing Vital Signs Nursing Vital Signs: Initial Vital Signs Temperature 97.8 F 03/02/20 22:59 Pulse Rate 88 03/02/20 22:59 Respiratory Rate 16 03/02/20 22:59 Blood Pressure 123/87 03/02/20 22:59 O2 Sat by Pulse Oximetry 96 03/02/20 22:59 Pain Scale Pain Intensity 6 - Physical Exam General Appearance: alert Eye Exam: PERRL/EOMI Ears, Nose, Throat Exam: pharynx normal, moist mucous membranes Neck Exam: normal inspection Respiratory Exam: lungs clear Cardiovascular Exam: normal heart sounds Gastrointestinal/Abdomen Exam: soft, normal bowel sounds Back Exam: No CVA tenderness Extremity Exam: No pedal edema Neurologic Exam: alert, cooperative - Course Nursing assessment & vital signs reviewed: Yes Ordered Tests: Active Orders 24 hr Category Date Time Status CULTURE,URINE Stat Lab 03/02/20 22:49 Received HCG,QUALITATIVE URINE Stat Lab 03/02/20 22:49 Completed UA W/RFX UR CULTURE Stat Lab 03/02/20 22:49 Completed Medication Summary Generic Name Dose Route Start Last Admin Trade Name Freq PRN Reason Stop Dose Admin Ceftriaxone Sodium 1,000 mg 03/03/20 00:13 Rocephin 1000 Mg Inj IM 03/03/20 00:14 STAT ONE Lab/Rad Data: Laboratory Results 03/02/20 03/02/20 Range/Units 22:49 22:49 Urine Color [place] (YELLOW) Urine Appearance CLEAR (CLEAR) Urine pH 6.0 (5-6) Ur Specific [place] 1.014 (1.005-1.025) Urine Protein NEGATIVE (Negative) Urine Ketones NEGATIVE (NEGATIVE) Urine Blood NEGATIVE (0-5) [place]/ul Urine Nitrite POSITIVE (NEGATIVE) Urine Bilirubin NEGATIVE (NEGATIVE) Urine Urobilinogen 4 (0-1) mg/dL Ur Leukocyte Esterase NEGATIVE (NEGATIVE) Urine WBC (Auto) 11-15 (0-5) /HPF Urine RBC (Auto) 3-5 (0-2) /HPF U Epithel Cells (Auto) NONE (FEW) /HPF Urine Bacteria (Auto) RARE (NEGATIVE) /HPF Amorphous Crystals FEW (NEGATIVE) /HPF Urine Culture Reflexed YES (NO) Urine Glucose NEGATIVE (NEGATIVE) mg/dL Urine HCG, Qual NEGATIVE (Negative) - Progress Progress: unchanged Counseled pt/family regarding: diagnosis - Departure Departure Disposition: Home Clinical Impression: UTI (urinary tract infection) Condition: Stable Critical Care Time: No Referrals: PADMINI MENDEZ MD [Primary Care Provider] - Instructions: Urinary Tract Infection, Adult (DC) Additional Instructions: Follow up with private doctor tomorrow. Prescriptions: Naproxen [Naprosyn] 500 mg PO [id number] PRN #20 tablet PRN Reason: Pain Nitrofurantoin Monohyd/M-Cryst [Macrobid 100 mg Capsule] 100 mg PO BID #14 capsule
[2020-03-02 22:58] LABS: Amourphous Crystal FEW /HPF (NEGATIVE); Appearance CLEAR (CLEAR); Bacteria RARE /HPF (NEGATIVE); Bilirubin NEGATIVE (NEGATIVE); Blood NEGATIVE Ery/ul (0-5); Glucose NEGATIVE (NEGATIVE); Ketones NEGATIVE (NEGATIVE); Leukocyte Esterase NEGATIVE (NEGATIVE); Nitrite POSITIVE (NEGATIVE); Protein,Urine Dip NEGATIVE (Negative); Specific Gravity 1.014 (1.005-1.025); Urobilinogen 4 mg/dL (0-1)
[2020-03-03] MEDS ORDERED: Rocephin 1000 MG INJ IM ONE (00:13)
[2020-03-03] MEDS ORDERED: Rocephin 1000 MG INJ ONE (00:27)
[2020-03-03 00:35] VITALS: BP 120/76; PULSE 65; O2SAT 97
== END 2020-03-03 00:42 | disposition home or self-care (01) ==
LOC: ED 20:58
DX: N39.0 Urinary tract infection, site not specified (principal)
CPT/HCPCS: 81001; 84703; 87077; 87086; 87186; 96372; 99284; J0696

== ENCOUNTER 2020-06-01 11:14 | Emergency (ER) | payer OTHER ==
[2020-06-01 12:02] LABS: Appearance SLIGHTLY CLOUDY (CLEAR); Bacteria FEW /HPF (NEGATIVE); Bilirubin NEGATIVE (NEGATIVE); Blood MODERATE Ery/ul (0-5); Epithelial Cells RARE /HPF (FEW); Glucose NEGATIVE (NEGATIVE); Ketones NEGATIVE (NEGATIVE); Leukocyte Esterase LARGE (NEGATIVE); Nitrite POSITIVE (NEGATIVE); Non-Squamous Epithelial Cells RARE /HPF (FEW); Protein,Urine Dip NEGATIVE (Negative); Specific Gravity 1.006 (1.005-1.025); Urobilinogen 4 mg/dL (0-1); WBC 51-100 /HPF (0-5)
[2020-06-01] MEDS ORDERED: BACTRIM DS TABLET PO STA (12:13)
--- NOTE | 2020-06-01 12:18 | ERPHSYRPT ---
- History of Present Illness Time Seen by Provider: 06/01/20 11:43 Source: patient Exam Limitations: no limitations Patient Subjective Stated Complaint: Abdominal pain Triage Nursing Assessment: Patient ambulated back to ED and transferred self to bed. Patient A+O X3. Patient's skin pink, warm and dry. Patient complains of lower abdominal pain for one week that has gotten worse. Patient states she was dx with a UTI last week and took all of her atb's. Patient complains of dysuria with frequency and urgency. Patient also states she has been having painful intercourse. Patient complains of lower abdominal pain 6/10. Abdomen soft and round with BS X 4. Physician History: 20 years old female presented in the ER with chief complaint of suprapubic pain for almost 1 week. Patient was recently treated outpatient with Macrobid for UTI. Patient reports increased frequency, urgency and sense of incomplete emptying with dysuria. She denies any vaginal bleeding and has usual discharge without any smell. No radiation of pain to the back are either right or left lower quadrants, rates 3/10 intensity, aggravated with urination and partial relief with taking Azo's. No nausea or vomiting. No fever or chills reported. Timing/Duration: week(s) (1), intermittent, gradual onset Activites at Onset: rest Quality: burning, dullness Onset Location: suprapubic, urethral Pain Radiation: none Severity of Pain-Max: moderate Severity of Pain-Current: mild Prior abdominal problems: UTI Sexual intercourse history: single partner Modifying Factors: Improves With: urinating Associated Symptoms: dysuria, urinary frequency Allergies/Adverse Reactions: polytracin Allergy (Severe, Uncoded 06/01/20 11:26) Medication given for pink eye. Medication caused eye to swell and become more reddened. Home Medications: Norethindrone AC-Eth Estradiol [Microgestin 21 1.5-30 Tab] 1 tab PO DAILY [History] Hx Tetanus, Diphtheria Vaccination/Date Given: No Hx Influenza Vaccination/Date Given: Yes Hx Pneumococcal Vaccination/Date Given: No Travel Risk - International Travel Have you traveled outside of the country in past 3 weeks: No - Coronavirus Screening Are you exhibiting any of the following symptoms?: No Close contact with a COVID-19 positive Pt in past 14-21 Days: No - Review of Systems Constitutional: No Symptoms Eyes: No Symptoms Ears, Nose, & Throat: No Symptoms Respiratory: No Symptoms Cardiac: No Symptoms Abdominal/Gastrointestinal: Abdominal Pain Genitourinary Symptoms: Dysuria, Frequency, No Urgency, No Urinary Retention, No Flank Pain, No Vaginal Bleeding, No Vaginal Discharge Musculoskeletal: No Symptoms Skin: No Symptoms Neurological: No Symptoms Psychological: No Symptoms Endocrine: No Symptoms Hematologic/Lymphatic: No Symptoms Immunological/Allergic: No Symptoms - Past Medical History Pertinent Past Medical History: No Neurological History: No Pertinent History ENT History: No Pertinent History Cardiac History: No Pertinent History Respiratory History: No Pertinent History Endocrine Medical History: No Pertinent History Musculoskeletal History: No Pertinent History GI Medical History: No Pertinent History History: No Pertinent History Psycho-Social History: No Pertinent History Female Reproductive Disorders: No Pertinent History Other Medical History: History of ovarian cysts - Past Surgical History Past Surgical History: Yes Neuro Surgical History: No Pertinent History Cardiac: No Pertinent History Respiratory: No Pertinent History Gastrointestinal: No Pertinent History Genitourinary: No Pertinent History Musculoskeletal: No Pertinent History Female Surgical History: Dilation & Curettage, Section Other Surgical History: D&C from miscarriage summer 2017 - Social History Smoking Status: Never smoker Exposure to second hand smoke: No Drug Use: none Patient Lives Alone: Yes - Female History Hx Last Menstrual Period: control Hx Now: No - Nursing Vital Signs Nursing Vital Signs: Initial Vital Signs Temperature 98.6 F 06/01/20 11:27 Pulse Rate 106 H 06/01/20 11:27 Respiratory Rate 18 06/01/20 11:27 Blood Pressure 138/79 06/01/20 11:27 O2 Sat by Pulse Oximetry 95 06/01/20 11:27 Pain Scale Pain Intensity 4 - Physical Exam General Appearance: no apparent distress, alert Eye Exam: PERRL/EOMI, eyes nml inspection Ears, Nose, Throat Exam: normal ENT inspection, pharynx normal Neck Exam: normal inspection, supple, full range of motion Respiratory Exam: normal breath sounds, lungs clear Cardiovascular Exam: regular rate/rhythm, normal heart sounds Gastrointestinal/Abdomen Exam: soft, normal bowel sounds, tenderness (suprapubic ) Back Exam: normal inspection, normal range of motion, No CVA tenderness Extremity Exam: normal inspection, normal range of motion, pelvis stable Neurologic Exam: alert, oriented x 3, cooperative Skin Exam: normal color SpO2 Interpretation: normal SpO2: 95 O2 Delivery: Room Air - Course Nursing assessment & vital signs reviewed: Yes Ordered Tests: Active Orders 24 hr Category Date Time Status CULTURE,URINE Stat Lab 06/01/20 11:55 Received HCG,QUALITATIVE URINE Stat Lab 06/01/20 11:55 Completed UA W/RFX UR CULTURE Stat Lab 06/01/20 11:55 Completed Medication Summary Discontinued Medications Generic Name Dose Route Start Last Admin Trade Name Freq PRN Reason Stop Dose Admin Trimethoprim/Sulfamethoxazole 1 tab 06/01/20 12:13 06/01/20 12:21 Bactrim Ds Tablet PO 06/01/20 12:14 1 tab STAT STA Administration Trimethoprim/Sulfamethoxazole Confirm 06/01/20 12:21 Bactrim Ds Tablet Administered 06/01/20 12:22 Dose 1 tab PO .STK-MED ONE Lab/Rad Data: Laboratory Results 06/01/20 06/01/20 06/01/20 Range/Units 11:55 11:55 11:55 Urine Color [place] (YELLOW) Urine Appearance SLIGHTLY CLOUDY (CLEAR) Urine pH 6.0 (5-6) Ur Specific [place] 1.006 (1.005-1.025) Urine Protein NEGATIVE (Negative) Urine Ketones NEGATIVE (NEGATIVE) Urine Blood MODERATE (0-5) Eugene/ul Urine Nitrite POSITIVE (NEGATIVE) Urine Bilirubin NEGATIVE (NEGATIVE) Urine Urobilinogen 4 (0-1) mg/dL Ur Leukocyte Esterase LARGE (NEGATIVE) Urine WBC (Auto) 51-100 (0-5) /HPF Urine RBC (Auto) 11-15 (0-2) /HPF U Epithel Cells (Auto) RARE (FEW) /HPF Urine Bacteria (Auto) FEW (NEGATIVE) /HPF U Non-Squamous Epi Cells RARE (FEW) /HPF Urine Culture Reflexed YES (NO) Urine Glucose NEGATIVE (NEGATIVE) mg/dL Urine HCG, Qual NEGATIVE (Negative) Chlamydia DNA Probe NOT DETECTED (NEGATIVE) N.gonorrhoeae DNA Probe NOT DETECTED (NEGATIVE) - Progress Progress: unchanged Air Movement: good Progress Note: 06/01/20 I believe patient has acute cystitis. Urinalysis consistent with UTI. I have started her on Bactrim. Culture will be obtained. Recommended outpatient follow-up. No right lower quadrant tenderness. No CVA tenderness. Do not think patient needs blood work or CT imaging at present as she does not have any signs of peritonitis. Discussed signs symptoms of worsening needing return to ER which patient seems understanding. Stable for discharge. Antibiotics given: Yes Counseled pt/family regarding: lab results, diagnosis, need for follow-up - Departure Departure Disposition: Home Clinical Impression: UTI (urinary tract infection) Qualifiers: Urinary tract infection type: acute cystitis Hematuria presence: with hematuria Qualified Code(s): N30.01 - Acute cystitis with hematuria Condition: Stable Critical Care Time: No Referrals: PADMINI MENDEZ MD [Primary Care Provider] - Follow Up with PCP (in 2 days for re eevaluation ) Instructions: Urinary Tract Infection, Adult (DC) Additional Instructions: Take Tylenol/ibuprofen as needed. Drink plenty of fluids. Follow-up with your primary care physician for reevaluation. Return to ER for any worsening pain/fever chills/vomiting. Prescriptions: Smz/Tmp Ds Tablet [Bactrim Ds Tablet] 1 udtab PO BID #14 tablet
[2020-06-01] MEDS ORDERED: BACTRIM DS TABLET PO ONE (12:21)
[2020-06-01 12:34] VITALS: BP 110/60; PULSE 83
[2020-06-01 12:43] VITALS: O2SAT 95
[2020-06-01 13:34] LABS: CHLAMYDIA DNA NOT DETECTED (NEGATIVE); GC DNA Probe NOT DETECTED (NEGATIVE)
== END 2020-06-01 12:38 | disposition home or self-care (01) ==
LOC: ED 11:14
DX: N39.0 Urinary tract infection, site not specified (principal)
CPT/HCPCS: 81001; 84703; 87077; 87086; 87186; 87491; 87591; 99283; A9270-GY

== ENCOUNTER 2020-07-30 09:54 | Emergency (ER) | payer OTHER ==
[2020-07-30] MEDS ORDERED: TYLENOL 325 MG ONE (10:24)
[2020-07-30] MEDS: TYLENOL 325 MG PO ONE (10:25)
[2020-07-30 10:41] LABS: Absolute Neutrophil Ct (ANC) 5.12 (1.4-6.9); BASOPHIL % 0.3 % (0.0-0.4); Basophil (Absolute #) 0.02 (0-0.4); Eosinophil % 1.7 % (0.00-5.0); Eosinophil (Absolute #) 0.13 (0-0.5); Lymphocyte (Absolute #) 1.87 (1.0-4.6); Lymphocytes % 24.2 % (24.0-44.0); Mean Cell Volume 91.5 fl (78-100); Mean Corpuscular Hemoglobin 30.5 pg (26-32); Mean Corpuscular Hgb Concent. 33.3 g/dl (32-36); Mean Platelet Volume 9.1 fl (7.5-11.0); Monocyte (Absolute #) 0.59 (0.0-1.3); Monocytes % 7.6 % (0.0-12.0); Neutrophil % 66.2 % (36.0-66.0); Platelet Count 299 K/mm3 (150-450); Red Blood Count 4.59 M/mm3 (4.1-5.4); Red Cell Distribution Width 12.4 % (11.5-14.0); White Blood Count 7.7 K/mm3 (4.0-10.5)
[2020-07-30 10:46] LABS: Appearance CLEAR (CLEAR); Bilirubin NEGATIVE (NEGATIVE); Blood SMALL Ery/ul (0-5); Epithelial Cells RARE /HPF (FEW); Glucose NEGATIVE (NEGATIVE); Ketones NEGATIVE (NEGATIVE); Leukocyte Esterase NEGATIVE (NEGATIVE); Mucus SLIGHT /HPF (NEGATIVE); Nitrite NEGATIVE (NEGATIVE); Protein,Urine Dip NEGATIVE (Negative); RBC 0-2 /HPF (0-2); Specific Gravity 1.009 (1.005-1.025); Urobilinogen NEGATIVE mg/dL (0-1); WBC 0-2 /HPF (0-5)
[2020-07-30 11:17] LABS: ALBUMIN 4.4 g/dL (3.5-5.0); ALKALINE PHOSPHATASE 65 U/L (38-126); ANION GAP 12.6 MEQ/L (5-15); BLOOD UREA NITROGEN 9 mg/dL (7-17); CHLORIDE 103 mmol/L (98-107); Calcium 9.6 mg/dL (8.4-10.2); Carbon Dioxide 28 mmol/L (22-30); Creatinine 1 0.65 mg/dL (0.52-1.04); EST GLOMERULAR FILTRATION RATE > 60.0 ML/MIN; Glucose 92 mg/dL (74-106); Potassium 4.1 mmol/L (3.5-5.1); SGOT/AST 23 U/L (14-36); SGPT/ALT 13 U/L (0-35); SODIUM 140 mmol/L (137-145); Total Protein 7.7 g/dL (6.3-8.2)
--- NOTE | 2020-07-30 12:11 | ERPHSYRPT ---
- History of Present Illness Time Seen by Provider: 07/30/20 10:19 Source: patient Exam Limitations: no limitations Patient Subjective Stated Complaint: Lower abdominal cramping Triage Nursing Assessment: Patient ambulated back to ED and transferred self to bed. Patient A+O X3. Patient's skin pink, warm and dry. Patient complains of lower abdominal pain constant cramping 8/10 that is worse when she stands. Patient denies vaginal bleeding, but did say some type of mucus plug came out yesterday from vagina. Patient complains of frequency upon urination, but denies dysuria or urgency. Abdomen soft and round with BS X 4. Physician History: 20 years old female presented in the ER with chief complaint of pelvic cramping for the last couple of days off and on but gradual worsening without any associated vaginal bleeding. She is also having pain radiating to the lower back. Patient noticed some mucous plug passing yesterday. She is on continuous control pills and usually does not have cycle. Denies any nausea or vomiting diarrhea. No fever or chills reported. Patient is worried about being and was seen at [facility] with negative test but she wants to get it checked again. Denies any urinary symptoms. Timing/Duration: day(s) (1), gradual onset, worse Activites at Onset: rest Quality: cramping Onset Location: pelvic pain, low back pain Pain Radiation: back Severity of Pain-Max: moderate Severity of Pain-Current: moderate Prior abdominal problems: none Sexual intercourse history: non-contributory Modifying Factors: Improves With: nothing Associated Symptoms: denies symptoms Allergies/Adverse Reactions: polytracin Allergy (Severe, Uncoded 07/30/20 10:16) Medication given for pink eye. Medication caused eye to swell and become more reddened. Home Medications: No Reportable Medications [No Reported Medications] 07/30/20 [History] Hx Tetanus, Diphtheria Vaccination/Date Given: No Hx Influenza Vaccination/Date Given: Yes Hx Pneumococcal Vaccination/Date Given: No Travel Risk - International Travel Have you traveled outside of the country in past 3 weeks: No - Coronavirus Screening Are you exhibiting any of the following symptoms?: No Close contact with a COVID-19 positive Pt in past 14-21 Days: No - Review of Systems Constitutional: No Symptoms Eyes: No Symptoms Ears, Nose, & Throat: No Symptoms Respiratory: No Symptoms Cardiac: No Symptoms Abdominal/Gastrointestinal: No Symptoms Genitourinary Symptoms: No Symptoms Musculoskeletal: Back Pain Skin: No Symptoms Neurological: No Symptoms Psychological: No Symptoms Endocrine: No Symptoms Hematologic/Lymphatic: No Symptoms Immunological/Allergic: No Symptoms - Past Medical History Pertinent Past Medical History: No Neurological History: No Pertinent History ENT History: No Pertinent History Cardiac History: No Pertinent History Respiratory History: No Pertinent History Endocrine Medical History: No Pertinent History Musculoskeletal History: No Pertinent History GI Medical History: No Pertinent History History: No Pertinent History Psycho-Social History: No Pertinent History Female Reproductive Disorders: No Pertinent History Other Medical History: History of ovarian cysts - Past Surgical History Past Surgical History: Yes Neuro Surgical History: No Pertinent History Cardiac: No Pertinent History Respiratory: No Pertinent History Gastrointestinal: No Pertinent History Genitourinary: No Pertinent History Musculoskeletal: No Pertinent History Female Surgical History: Dilation & Curettage, Section Other Surgical History: D&C from miscarriage summer 2017 - Social History Smoking Status: Never smoker Exposure to second hand smoke: No Drug Use: none Patient Lives Alone: Yes - Female History Hx Last Menstrual Period: unknown Hx Now: (unknown) - Nursing Vital Signs Nursing Vital Signs: Initial Vital Signs Temperature 97.9 F 07/30/20 10:17 Pulse Rate 79 07/30/20 10:17 Respiratory Rate 18 07/30/20 10:17 Blood Pressure 117/69 07/30/20 10:17 O2 Sat by Pulse Oximetry 97 07/30/20 10:17 Pain Scale Pain Intensity 8 - Physical Exam General Appearance: no apparent distress Ears, Nose, Throat Exam: normal ENT inspection, TMs normal, pharynx normal Neck Exam: normal inspection, non-tender, supple, full range of motion Respiratory Exam: normal breath sounds, lungs clear Cardiovascular Exam: regular rate/rhythm, normal heart sounds Gastrointestinal/Abdomen Exam: soft, normal bowel sounds, No tenderness Pelvic Exam: not done Back Exam: normal inspection, normal range of motion Extremity Exam: normal inspection, normal range of motion Neurologic Exam: alert, oriented x 3, cooperative Skin Exam: normal color, warm SpO2 Interpretation: normal SpO2: 99 O2 Delivery: Room Air Ordered Tests: Active Orders 24 hr Category Date Time Status IV Insertion STAT Care 07/30/20 10:19 Completed CBC W DIFF Stat Lab 07/30/20 10:30 Completed CMP Stat Lab 07/30/20 10:30 Completed HCG, Quantitative (Inhouse) Stat Lab 07/30/20 10:30 Completed HCG,QUALITATIVE URINE Stat Lab 07/30/20 10:23 Completed UA W/RFX UR CULTURE Stat Lab 07/30/20 10:23 Completed Medication Summary Discontinued Medications Generic Name Dose Route Start Last Admin Trade Name Marisa PRN Reason Stop Dose Admin Acetaminophen 975 mg 07/30/20 10:19 07/30/20 10:25 Tylenol 325 Mg PO 07/30/20 10:20 975 mg STAT ONE Administration Acetaminophen Confirm 07/30/20 10:24 Tylenol 325 Mg Administered 07/30/20 10:25 Dose 975 mg .ROUTE .STcrossvertise-MED ONE Lab/Rad Data: Laboratory Result Diagrams 07/30/20 10:30 07/30/20 10:30 Laboratory Results 07/30/20 07/30/20 07/30/20 Range/Units 10:30 10:30 10:30 WBC 7.7 (4.0-10.5) K/mm3 RBC 4.59 (4.1-5.4) M/mm3 Hgb 14.0 (12.0-16.0) gm/dl Hct 42.0 (35-47) % MCV 91.5 (78-100) fl MCH 30.5 (26-32) pg MCHC 33.3 (32-36) g/dl RDW 12.4 (11.5-14.0) % Plt Count 299 (150-450) K/mm3 MPV 9.1 (7.5-11.0) fl Gran % 66.2 H (36.0-66.0) % Eos # (Auto) 0.13 (0-0.5) Absolute Lymphs (auto) 1.87 (1.0-4.6) Absolute Monos (auto) 0.59 (0.0-1.3) Lymphocytes % 24.2 (24.0-44.0) % Monocytes % 7.6 (0.0-12.0) % Eosinophils % 1.7 (0.00-5.0) % Basophils % 0.3 (0.0-0.4) % Absolute Granulocytes 5.12 (1.4-6.9) Basophils # 0.02 (0-0.4) Sodium 140 (137-145) mmol/L Potassium 4.1 (3.5-5.1) mmol/L Chloride 103 (98-107) mmol/L Carbon Dioxide 28 (22-30) mmol/L Anion Gap 12.6 (5-15) MEQ/L BUN 9 (7-17) mg/dL Creatinine 0.65 (0.52-1.04) mg/dL Estimated GFR > 60.0 ML/MIN Glucose 92 (74-106) mg/dL Calcium 9.6 (8.4-10.2) mg/dL Total Bilirubin 0.40 (0.2-1.3) mg/dL AST 23 (14-36) U/L ALT 13 (0-35) U/L Alkaline Phosphatase 65 (38-126) U/L Serum Total Protein 7.7 (6.3-8.2) g/dL Albumin 4.4 (3.5-5.0) g/dL Beta HCG, Quant < 2.39 mIU/ml Urine Color (YELLOW) Urine Appearance (CLEAR) Urine pH (5-6) Ur Specific [place] (1.005-1.025) Urine Protein (Negative) Urine Ketones (NEGATIVE) Urine Blood (0-5) Eugene/ul Urine Nitrite (NEGATIVE) Urine Bilirubin (NEGATIVE) Urine Urobilinogen (0-1) mg/dL Ur Leukocyte Esterase (NEGATIVE) Urine WBC (Auto) (0-5) /HPF Urine RBC (Auto) (0-2) /HPF U Epithel Cells (Auto) (FEW) /HPF Urine Bacteria (Auto) (NEGATIVE) /HPF Urine Mucus (Auto) (NEGATIVE) /HPF Urine Culture Reflexed (NO) Urine Glucose (NEGATIVE) mg/dL Urine HCG, Qual (Negative) 07/30/20 07/30/20 Range/Units 10:23 10:23 WBC (4.0-10.5) K/mm3 RBC (4.1-5.4) M/mm3 Hgb (12.0-16.0) gm/dl Hct (35-47) % MCV (78-100) fl MCH (26-32) pg MCHC (32-36) g/dl RDW (11.5-14.0) % Plt Count (150-450) K/mm3 MPV (7.5-11.0) fl Gran % (36.0-66.0) % Eos # (Auto) (0-0.5) Absolute Lymphs (auto) (1.0-4.6) Absolute Monos (auto) (0.0-1.3) Lymphocytes % (24.0-44.0) % Monocytes % (0.0-12.0) % Eosinophils % (0.00-5.0) % Basophils % (0.0-0.4) % Absolute Granulocytes (1.4-6.9) Basophils # (0-0.4) Sodium (137-145) mmol/L Potassium (3.5-5.1) mmol/L Chloride (98-107) mmol/L Carbon Dioxide (22-30) mmol/L Anion Gap (5-15) MEQ/L BUN (7-17) mg/dL Creatinine (0.52-1.04) mg/dL Estimated GFR ML/MIN Glucose (74-106) mg/dL Calcium (8.4-10.2) mg/dL Total Bilirubin (0.2-1.3) mg/dL AST (14-36) U/L ALT (0-35) U/L Alkaline Phosphatase (38-126) U/L Serum Total Protein (6.3-8.2) g/dL Albumin (3.5-5.0) g/dL Beta HCG, Quant mIU/ml Urine Color YELLOW (YELLOW) Urine Appearance CLEAR (CLEAR) Urine pH 7.0 (5-6) Ur Specific [place] 1.009 (1.005-1.025) Urine Protein NEGATIVE (Negative) Urine Ketones NEGATIVE (NEGATIVE) Urine Blood SMALL (0-5) Eugene/ul Urine Nitrite NEGATIVE (NEGATIVE) Urine Bilirubin NEGATIVE (NEGATIVE) Urine Urobilinogen NEGATIVE (0-1) mg/dL Ur Leukocyte Esterase NEGATIVE (NEGATIVE) Urine WBC (Auto) 0-2 (0-5) /HPF Urine RBC (Auto) 0-2 (0-2) /HPF U Epithel Cells (Auto) RARE (FEW) /HPF Urine Bacteria (Auto) NONE (NEGATIVE) /HPF Urine Mucus (Auto) SLIGHT (NEGATIVE) /HPF Urine Culture Reflexed NO (NO) Urine Glucose NEGATIVE (NEGATIVE) mg/dL Urine HCG, Qual NEGATIVE (Negative) - Progress Progress: re-examined Air Movement: good Progress Note: 07/30/20 23:24 She is given Tylenol for symptomatic relief. He does not have UTI. Normal white count, grossly unremarkable chemistries. Patient is not . She is counseled and recommended continue with control pills. Does not have any right lower quadrant tenderness at all. Do not think needs any imaging. Discussed signs symptoms of worsening needing return to ER which she seems understanding. 07/30/20 23:25 Blood Culture(s) Obtained: No Antibiotics given: No Counseled pt/family regarding: lab results, diagnosis - Departure Departure Disposition: Home Clinical Impression: Pelvic cramping Condition: Stable Critical Care Time: No Referrals: PADMINI MENDEZ MD [Primary Care Provider] - Follow Up with PCP/3 days Instructions: Bleeding Between Periods Additional Instructions: Keep yourself well-hydrated. Take Tylenol/ibuprofen as needed for cramping/pain. Restart taking your control pills. Follow-up with primary care for reevaluation. Return to ER for any worsening.
[2020-07-30 12:21] VITALS: BP 114/73; PULSE 86
[2020-07-30 23:19] VITALS: O2SAT 99
== END 2020-07-30 12:19 | disposition home or self-care (01) ==
LOC: ED 09:54
DX: R10.2 Pelvic and perineal pain (principal); R35.0 Frequency of micturition; M54.5 Low back pain; Z30.40 Encounter for surveillance of contraceptives, unspecified
CPT/HCPCS: 36000; 36415; 80053; 81001; 84702; 84703; 85025; 99284; A9270-GY

== ENCOUNTER 2022-04-17 20:51 | Emergency (ER) | payer OTHER ==
--- NOTE | 2022-04-17 22:38 | ERPHSYRPT ---
- History of Present Illness Time Seen by Provider: 04/17/22 22:37 Source: patient Exam Limitations: no limitations Physician History: This is a 21-year-old white female that does not have a history of migraine headaches but for the last 4 days has had intermittent global throbbing headache pain. She has had associated nausea. She has not had a fever. She denies cou gh and she denies sore throat. She denies chest pain. She has not had vomiting or diarrhea. Today, she had an episode of severe headache and felt as though she was going to pass out. She felt nauseated and had some epigastric discomfort that was associated with the nausea. She also had an episode of blurred vision during the intense pain. Prior to last 4 days, she has never had anything like this in the past. There is been no head trauma. There is been no new medications. There is been no new exposures that she is aware of that could have caused these symptoms. Timing/Duration: day(s) (4), intermittent, worse Quality: throbbing Head Pain Location: global Severity of Pain-Max: moderate Severity of Pain-Current: moderate Recent Head Trauma: no recent headache/trauma Modifying Factors: Improves With: exposure to light, noise Associated Symptoms: nausea/vomiting (Nausea but no vomiting), vision changes (Had blurred vision at the time) Previous symptoms: no prior history Allergies/Adverse Reactions: polytracin Allergy (Severe, Uncoded 07/30/20 10:16) Medication given for pink eye. Medication caused eye to swell and become more reddened. Home Medications: Norgestimate-Ethinyl Estradiol [Sprintec 28 Day Tablet] 1 each PO DAILY 04/17/22 [History] Hx Tetanus, Diphtheria Vaccination/Date Given: No Hx Influenza Vaccination/Date Given: Yes Hx Pneumococcal Vaccination/Date Given: No Travel Risk - International Travel Have you traveled outside of the country in past 3 weeks: No - Coronavirus Screening Are you exhibiting any of the following symptoms?: No Close contact with a COVID-19 positive Pt in past 14-21 Days: No - Review of Systems Constitutional: No Symptoms Eyes: Vision Changes (Blurred vision that was brief during the most intense headache pain) Ears, Nose, & Throat: No Symptoms Respiratory: No Symptoms Cardiac: No Symptoms Abdominal/Gastrointestinal: Nausea, No Abdominal Pain, No Vomiting Genitourinary Symptoms: No Symptoms Musculoskeletal: No Symptoms Skin: No Symptoms Neurological: Headache Psychological: No Symptoms Endocrine: No Symptoms Hematologic/Lymphatic: No Symptoms Immunological/Allergic: No Symptoms All Other Systems: Reviewed and Negative - Past Medical History Pertinent Past Medical History: No Neurological History: No Pertinent History ENT History: No Pertinent History Cardiac History: No Pertinent History Respiratory History: No Pertinent History Endocrine Medical History: No Pertinent History Musculoskeletal History: No Pertinent History GI Medical History: No Pertinent History History: No Pertinent History Psycho-Social History: No Pertinent History Female Reproductive Disorders: No Pertinent History Other Medical History: History of ovarian cysts - Past Surgical History Past Surgical History: Yes Neuro Surgical History: No Pertinent History Cardiac: No Pertinent History Respiratory: No Pertinent History Gastrointestinal: No Pertinent History Genitourinary: No Pertinent History Musculoskeletal: No Pertinent History Female Surgical History: Dilation & Curettage, Section Other Surgical History: D&C from miscarriage summer 2017 - Social History Smoking Status: Never smoker Exposure to second hand smoke: No Drug Use: none Patient Lives Alone: Yes - Nursing Vital Signs Nursing Vital Signs: Initial Vital Signs Temperature 98.2 F 04/17/22 22:37 Pulse Rate 88 04/17/22 22:37 Respiratory Rate 16 04/17/22 22:37 Blood Pressure 129/86 04/17/22 22:37 O2 Sat by Pulse Oximetry 99 04/17/22 22:37 Pain Scale Pain Intensity 5 - Physical Exam General Appearance: no apparent distress, alert, anxiety Eye Exam: PERRL/EOMI, eyes nml inspection Ears, Nose, Throat Exam: normal ENT inspection, moist mucous membranes Neck Exam: normal inspection, non-tender, supple, full range of motion Respiratory Exam: normal breath sounds, lungs clear, airway intact, No chest tenderness, No respiratory distress Cardiovascular Exam: regular rate/rhythm, normal heart sounds, normal peripheral pulses Gastrointestinal/Abdominal Exam: soft, normal bowel sounds, No tenderness Back Exam: normal inspection, normal range of motion, No CVA tenderness Extremity Exam: normal inspection, normal range of motion, pelvis stable Mental Status Exam: alert, oriented x 3, 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 Exam: normal hearing, normal speech, PERRL Coordination/Gait Exam: normal finger to nose, normal gait, normal cerebellar function Motor/Sensory Exam: no motor deficit, no sensory deficit, no pronator drift Skin Exam: normal color, warm, dry Lymphatic Exam: No adenopathy SpO2 Interpretation: normal O2 Delivery: Room Air - Course Nursing assessment & vital signs reviewed: Yes Ordered Tests: Active Orders 24 hr Category Date Time Status IV Insertion STAT Care 04/17/22 23:08 Active Pulse Oximetry (ED) STAT Care 04/17/22 23:08 Active HEAD WITHOUT CONTRAST [CT] Stat Exams 04/17/22 23:09 Taken CBC W DIFF Stat Lab 04/17/22 23:00 Completed CMP Stat Lab 04/17/22 23:00 Completed HCG,QUALITATIVE URINE Stat Lab 04/17/22 23:09 Completed Kinney Screen Stat Lab 04/17/22 Completed UA W/RFX CULTURE Stat Lab 04/17/22 Completed Urine Triage Profile Stat Lab 04/17/22 23:19 Completed Medication Summary Discontinued Medications Generic Name Dose Route Start Last Admin Trade Name Freq PRN Reason Stop Dose Admin Al Hydrox/Mg Hydrox/Simethicone Confirm 04/18/22 00:36 Mag Hydrox/Al Hydrox/Simeth 30 Ml Udcup Administered 04/18/22 00:37 Dose 30 ml .ROUTE .STK-MED ONE Famotidine 40 mg 04/18/22 00:31 04/18/22 00:36 Famotidine 20 Mg/1 Vial IV 04/18/22 00:32 40 mg STAT ONE Administration Famotidine Confirm 04/18/22 00:35 Famotidine 20 Mg/1 Vial Administered 04/18/22 00:36 Dose 20 mg IV .STK-MED ONE Famotidine Confirm 04/18/22 00:40 Famotidine 20 Mg/1 Vial Administered 04/18/22 00:41 Dose 20 mg IV .STK-MED ONE Hydromorphone HCl 0.5 mg 04/17/22 23:08 04/17/22 23:23 Hydromorphone 1 Mg/1ml Inj 1 Mg/Ml Syringe IV 04/17/22 23:09 0.5 mg STAT ONE Administration Hydromorphone HCl Confirm 04/17/22 23:21 Hydromorphone 1 Mg/1ml Inj 1 Mg/Ml Syringe Administered 04/17/22 23:22 Dose 1 mg .ROUTE .STK-MED ONE Lidocaine HCl Confirm 04/18/22 00:35 Lidocaine Hcl 2% Viscous 15 Ml Udcup Administered 04/18/22 00:36 Dose 15 ml .ROUTE [email or web address] ONE Magnesium Hydroxide 45 ml 04/18/22 00:31 04/18/22 00:37 Mag Hydrx/Alum Hyd/Simeth/Lido 45 Ml Bottle PO 04/18/22 00:32 45 ml STAT ONE Administration Prochlorperazine Edisylate 5 mg 04/17/22 23:08 04/17/22 23:23 Prochlorperazine Edisylate 10 Mg/2 Ml Vial IV 04/17/22 23:09 5 mg STAT ONE Administration Prochlorperazine Edisylate Confirm 04/17/22 23:21 Prochlorperazine Edisylate 10 Mg/2 Ml Vial Administered 04/17/22 23:22 Dose 10 mg .ROUTE [email or web address] ONE Lab/Rad Data: Laboratory Result Diagrams 04/17/22 23:00 04/17/22 23:00 Laboratory Results 04/18/22 04/17/22 04/17/22 Range/Units 00:15 Unknown Unknown WBC (4.0-10.5) x10^3/uL RBC (4.1-5.4) x10^6/uL Hgb (12.0-16.0) g/dL Hct (35-47) % MCV (78-100) fL MCH (26-32) pg MCHC (32-36) g/dL RDW (11.5-14.0) % Plt Count (150-450) x10^3/uL MPV (7.5-11.0) fL Gran % (36.0-66.0) % Immature Gran % (Auto) (0.00-0.4) % Nucleat RBC Rel Count (0.00-0.1) % Eos # (Auto) (0-0.5) x10^3/uL Immature Gran # (Auto) (0.00-0.03) x10^3u/L Absolute Lymphs (auto) (1.0-4.6) x10^3/uL Absolute Monos (auto) (0.0-1.3) x10^3/uL Absolute Nucleated RBC (0.00-0.01) x10^3u/L Lymphocytes % (24.0-44.0) % Monocytes % (0.0-12.0) % Eosinophils % (0.00-5.0) % Basophils % (0.0-0.4) % Absolute Granulocytes (1.4-6.9) x10^3/uL Basophils # (0-0.4) x10^3/uL Sodium (137-145) mmol/L Potassium (3.5-5.1) mmol/L Chloride (98-107) mmol/L Carbon Dioxide (22-30) mmol/L Anion Gap (5-15) MEQ/L BUN (7-17) mg/dL Creatinine (0.52-1.04) mg/dL Estimated GFR ML/MIN Glucose (74-106) mg/dL Calcium (8.4-10.2) mg/dL Total Bilirubin (0.2-1.3) mg/dL AST (14-36) U/L ALT (0-35) U/L Alkaline Phosphatase (38-126) U/L Serum Total Protein (6.3-8.2) g/dL Albumin (3.5-5.0) g/dL Urinalys Dipstick Clnc MAIN LAB Urine Color YELLOW (YELLOW) Urine Appearance CLEAR (CLEAR) Urine pH 7.0 (5-6) Ur Specific [place] 1.010 (1.005-1.025) POC Urine Protein Conf NEGATIVE (Negative) Urine Ketones NEGATIVE (NEGATIVE) Urine Nitrite NEGATIVE (NEGATIVE) Urine Bilirubin NEGATIVE (NEGATIVE) Urine Urobilinogen 0.2 (0-1) mg/dL Urine Leukocytes NEGATIVE (NEGATIVE) Urine WBC (Auto) 0-2 (0-5) /HPF Urine RBC (Auto) 0-2 (0-2) /HPF U Epithel Cells (Auto) RARE (FEW) /HPF Urine Bacteria (Auto) Not Reportable Urine RBC TRACE-INTACT (0-5) [place]/ul Urine Mucus (Auto) SLIGHT (NEGATIVE) /HPF Ur Culture Indicated? NO Urine Glucose NEGATIVE (NEGATIVE) mg/dL Urine HCG, Qual (Negative) Urine Opiates Level (NEGATIVE) Ur Methadone (NEGATIVE) Urine Barbiturates (NEGATIVE) Ur Phencyclidine (PCP) (NEGATIVE) Urine Amphetamine (NEGATIVE) U Benzodiazepine Level (NEGATIVE) Urine Cocaine (NEGATIVE) Urine Marijuana (THC) (NEGATIVE) Monoscreen NEGATIVE (Negative) Influenza Type A Ag NEGATIVE (NEGATIVE) Influenza Type B Ag NEGATIVE (NEGATIVE) RSV (PCR) NEGATIVE (Negative) SARS-CoV-2 (PCR) NEGATIVE (NEGATIVE) 04/17/22 04/17/22 04/17/22 Range/Units 23:19 23:09 23:00 WBC (4.0-10.5) x10^3/uL RBC (4.1-5.4) x10^6/uL Hgb (12.0-16.0) g/dL Hct (35-47) % MCV (78-100) fL MCH (26-32) pg MCHC (32-36) g/dL RDW (11.5-14.0) % Plt Count (150-450) x10^3/uL MPV (7.5-11.0) fL Gran % (36.0-66.0) % Immature Gran % (Auto) (0.00-0.4) % Nucleat RBC Rel Count (0.00-0.1) % Eos # (Auto) (0-0.5) x10^3/uL Immature Gran # (Auto) (0.00-0.03) x10^3u/L Absolute Lymphs (auto) (1.0-4.6) x10^3/uL Absolute Monos (auto) (0.0-1.3) x10^3/uL Absolute Nucleated RBC (0.00-0.01) x10^3u/L Lymphocytes % (24.0-44.0) % Monocytes % (0.0-12.0) % Eosinophils % (0.00-5.0) % Basophils % (0.0-0.4) % Absolute Granulocytes (1.4-6.9) x10^3/uL Basophils # (0-0.4) x10^3/uL Sodium 140 (137-145) mmol/L Potassium 3.6 (3.5-5.1) mmol/L Chloride 104 (98-107) mmol/L Carbon Dioxide 28 (22-30) mmol/L Anion Gap 10.7 (5-15) MEQ/L BUN 9 (7-17) mg/dL Creatinine 0.80 (0.52-1.04) mg/dL Estimated GFR > 60.0 ML/MIN Glucose 100 (74-106) mg/dL Calcium 9.1 (8.4-10.2) mg/dL Total Bilirubin 0.30 (0.2-1.3) mg/dL AST 22 (14-36) U/L ALT 17 (0-35) U/L Alkaline Phosphatase 75 (38-126) U/L Serum Total Protein 8.6 H (6.3-8.2) g/dL Albumin 4.7 (3.5-5.0) g/dL Urinalys Dipstick Clnc Urine Color (YELLOW) Urine Appearance (CLEAR) Urine pH (5-6) Ur Specific [place] (1.005-1.025) POC Urine Protein Conf (Negative) Urine Ketones (NEGATIVE) Urine Nitrite (NEGATIVE) Urine Bilirubin (NEGATIVE) Urine Urobilinogen (0-1) mg/dL Urine Leukocytes (NEGATIVE) Urine WBC (Auto) (0-5) /HPF Urine RBC (Auto) (0-2) /HPF U Epithel Cells (Auto) (FEW) /HPF Urine Bacteria (Auto) Urine RBC (0-5) Eugene/ul Urine Mucus (Auto) (NEGATIVE) /HPF Ur Culture Indicated? Urine Glucose (NEGATIVE) mg/dL Urine HCG, Qual NEGATIVE (Negative) Urine Opiates Level NEGATIVE (NEGATIVE) Ur Methadone NEGATIVE (NEGATIVE) Urine Barbiturates NEGATIVE (NEGATIVE) Ur Phencyclidine (PCP) NEGATIVE (NEGATIVE) Urine Amphetamine NEGATIVE (NEGATIVE) U Benzodiazepine Level NEGATIVE (NEGATIVE) Urine Cocaine NEGATIVE (NEGATIVE) Urine Marijuana (THC) NEGATIVE (NEGATIVE) Monoscreen (Negative) Influenza Type A Ag (NEGATIVE) Influenza Type B Ag (NEGATIVE) RSV (PCR) (Negative) SARS-CoV-2 (PCR) (NEGATIVE) 04/17/22 Range/Units 23:00 WBC 8.7 (4.0-10.5) x10^3/uL RBC 4.50 (4.1-5.4) x10^6/uL Hgb 13.8 (12.0-16.0) g/dL Hct 40.6 (35-47) % MCV 90.2 (78-100) fL MCH 30.7 (26-32) pg MCHC 34.0 (32-36) g/dL RDW 12.0 (11.5-14.0) % Plt Count 336 (150-450) x10^3/uL MPV 8.9 (7.5-11.0) fL Gran % 49.9 (36.0-66.0) % Immature Gran % (Auto) 0.2 (0.00-0.4) % Nucleat RBC Rel Count 0.0 (0.00-0.1) % Eos # (Auto) 0.14 (0-0.5) x10^3/uL Immature Gran # (Auto) 0.02 (0.00-0.03) x10^3u/L Absolute Lymphs (auto) 3.51 (1.0-4.6) x10^3/uL Absolute Monos (auto) 0.63 (0.0-1.3) x10^3/uL Absolute Nucleated RBC 0.00 (0.00-0.01) x10^3u/L Lymphocytes % 40.5 (24.0-44.0) % Monocytes % 7.3 (0.0-12.0) % Eosinophils % 1.6 (0.00-5.0) % Basophils % 0.5 (0.0-0.4) % Absolute Granulocytes 4.32 (1.4-6.9) x10^3/uL Basophils # 0.04 (0-0.4) x10^3/uL Sodium (137-145) mmol/L Potassium (3.5-5.1) mmol/L Chloride (98-107) mmol/L Carbon Dioxide (22-30) mmol/L Anion Gap (5-15) MEQ/L BUN (7-17) mg/dL Creatinine (0.52-1.04) mg/dL Estimated GFR ML/MIN Glucose (74-106) mg/dL Calcium (8.4-10.2) mg/dL Total Bilirubin (0.2-1.3) mg/dL AST (14-36) U/L ALT (0-35) U/L Alkaline Phosphatase (38-126) U/L Serum Total Protein (6.3-8.2) g/dL Albumin (3.5-5.0) g/dL Urinalys Dipstick Clnc Urine Color (YELLOW) Urine Appearance (CLEAR) Urine pH (5-6) Ur Specific [place] (1.005-1.025) POC Urine Protein Conf (Negative) Urine Ketones (NEGATIVE) Urine Nitrite (NEGATIVE) Urine Bilirubin (NEGATIVE) Urine Urobilinogen (0-1) mg/dL Urine Leukocytes (NEGATIVE) Urine WBC (Auto) (0-5) /HPF Urine RBC (Auto) (0-2) /HPF U Epithel Cells (Auto) (FEW) /HPF Urine Bacteria (Auto) Urine RBC (0-5) [place]/ul Urine Mucus (Auto) (NEGATIVE) /HPF Ur Culture Indicated? Urine Glucose (NEGATIVE) mg/dL Urine HCG, Qual (Negative) Urine Opiates Level (NEGATIVE) Ur Methadone (NEGATIVE) Urine Barbiturates (NEGATIVE) Ur Phencyclidine (PCP) (NEGATIVE) Urine Amphetamine (NEGATIVE) U Benzodiazepine Level (NEGATIVE) Urine Cocaine (NEGATIVE) Urine Marijuana (THC) (NEGATIVE) Monoscreen (Negative) Influenza Type A Ag (NEGATIVE) Influenza Type B Ag (NEGATIVE) RSV (PCR) (Negative) SARS-CoV-2 (PCR) (NEGATIVE) - Progress Progress: improved, re-examined Air Movement: good Progress Note: 04/18/22 00:33 CAT scan of the head without contrast shows no acute intracranial abnormality. 04/18/22 00:59 Patient states that her headache is now gone. She also states that her epigastric discomfort is gone after ingestion of the GI cocktail. She was little anxious with the numbness sensation in the mouth and the back of the throat. But when I explained to her the medication in the GI cocktail she became less anxious. Patient states that she is feeling better overall and is ready to go home 04/18/22 01:00 Blood Culture(s) Obtained: No Counseled pt/family regarding: lab results, diagnosis, need for follow-up, rad results - Departure Departure Disposition: Home Clinical Impression: Headache Condition: Stable Critical Care Time: No Referrals: PADMINI MENDEZ MD [Primary Care Provider] - Follow up/PCP as directed Additional Instructions: Drink plenty of clear liquids. Avoid fatty greasy spicy foods. May use Tylenol and ibuprofen or Tylenol and Excedrin for control of any headaches. Return to the emergency department if your headaches worsen. Follow-up with your primary care provider for further evaluation and management.
[2022-04-17] MEDS ORDERED: Hydromorphone 1 mg/ml Injection IV ONE (23:08)
[2022-04-17] MEDS ORDERED: Compazine 10 MG/2 ML IV ONE (23:08)
[2022-04-17 23:14] LABS: Absolute Neutrophil Ct (ANC) 4.32 x10^3/uL (1.4-6.9); Basophil (Absolute #) 0.04 x10^3/uL (0-0.4); Eosinophil % 1.6 % (0.00-5.0); Eosinophil (Absolute #) 0.14 x10^3/uL (0-0.5); Hematocrit 40.6 % (35-47); Hemoglobin 13.8 g/dL (12.0-16.0); Lymphocyte (Absolute #) 3.51 x10^3/uL (1.0-4.6); Lymphocytes % 40.5 % (24.0-44.0); Mean Cell Volume 90.2 fL (78-100); Mean Corpuscular Hemoglobin 30.7 pg (26-32); Mean Platelet Volume 8.9 fL (7.5-11.0); Monocyte (Absolute #) 0.63 x10^3/uL (0.0-1.3); Monocytes % 7.3 % (0.0-12.0); Neutrophil % 49.9 % (36.0-66.0); Platelet Count 336 x10^3/uL (150-450); White Blood Count 8.7 x10^3/uL (4.0-10.5)
[2022-04-17 23:18] LABS: Epithelial Cells RARE /HPF (FEW); Mucus SLIGHT /HPF (NEGATIVE); RBC 0-2 /HPF (0-2); WBC 0-2 /HPF (0-5)
[2022-04-17 23:19] LABS: Appearance CLEAR (CLEAR); Bilirubin NEGATIVE (NEGATIVE); Glucose NEGATIVE (NEGATIVE); Ketones NEGATIVE (NEGATIVE); RBC TRACE-INTACT Ery/ul (0-5)
[2022-04-17 23:20] LABS: Dipstick done @ ? MAIN LAB; Nitrite NEGATIVE (NEGATIVE); Protein,Urine Dip NEGATIVE (Negative); Urobilinogen 0.2 mg/dL (0-1)
[2022-04-17 23:21] LABS: Urine Cultured Indicated? NO
[2022-04-17] MEDS ORDERED: Hydromorphone 1 mg/ml Injection ONE (23:21)
[2022-04-17] MEDS ORDERED: Compazine 10 MG/2 ML ONE (23:21)
[2022-04-17 23:32] LABS: ALBUMIN 4.7 g/dL (3.5-5.0); ALKALINE PHOSPHATASE 75 U/L (38-126); ANION GAP 10.7 MEQ/L (5-15); BLOOD UREA NITROGEN 9 mg/dL (7-17); CHLORIDE 104 mmol/L (98-107); Calcium 9.1 mg/dL (8.4-10.2); Carbon Dioxide 28 mmol/L (22-30); EST GLOMERULAR FILTRATION RATE > 60.0 ML/MIN; Glucose 100 mg/dL (74-106); Potassium 3.6 mmol/L (3.5-5.1); SGOT/AST 22 U/L (14-36); SGPT/ALT 17 U/L (0-35); SODIUM 140 mmol/L (137-145); Total Protein 8.6 g/dL (6.3-8.2)
[2022-04-17 23:33] LABS: Amphetamine,Urine NEGATIVE (NEGATIVE); Barbiturate,Urine NEGATIVE (NEGATIVE); Benzodiazepine,Urine NEGATIVE (NEGATIVE); Cocaine,Urine NEGATIVE (NEGATIVE); Methadone,Urine NEGATIVE (NEGATIVE); Opiate,Urine NEGATIVE (NEGATIVE); PCP,Urine NEGATIVE (NEGATIVE); THC,Urine NEGATIVE (NEGATIVE)
[2022-04-18] MEDS ORDERED: Pepcid 20 MG VIAL IV ONE ×3 (00:31→00:40)
[2022-04-18] MEDS ORDERED: GI COCKTAIL 45 ML (Maalox/Lidocaine) PO ONE (00:31)
[2022-04-18] MEDS ORDERED: XYLOCAINE VISCOUS 2% 15 ML CUP ONE (00:35)
[2022-04-18] MEDS ORDERED: MAALOX ES 30 ML UNIT DOSE ONE (00:36)
[2022-04-18 00:56] LABS: INFLUENZA A NEGATIVE (NEGATIVE); INFLUENZA B NEGATIVE (NEGATIVE); RESPIRATORY SYNCTIAL VIRUS NEGATIVE (Negative); SARS-CoV-2 Xpert Express NEGATIVE (NEGATIVE)
[2022-04-18 01:10] VITALS: BP 111/68; PULSE 69; O2SAT 99
--- NOTE | 2022-04-18 07:50 | XRAY ---
Indication: Headache. Multiple contiguous axial images obtained through the head without contrast. Comparison: None Normal appearing brain parenchyma, ventricles, and bony calvarium. Visualized paranasal sinuses and mastoid air cells are clear. Impression: Normal CT head without contrast exam. Comment: Preliminary interpretation made by [facility]. No critical discrepancy.
== END 2022-04-18 01:13 | disposition home or self-care (01) ==
LOC: ED 20:51
DX: R51.9 Headache, unspecified (principal); R11.0 Nausea; R10.13 Epigastric pain; H53.8 Other visual disturbances
CPT/HCPCS: 0241U; 36000; 36415; 70450; 80053; 80307; 81015; 81025; 85025; 86308; 94760; 96374; 96375; 99284; J1170; A9270-GY

== ENCOUNTER 2022-11-23 12:43 | Emergency (ER) | payer OTHER ==
[2022-11-23 13:13] VITALS: PULSE 94
[2022-11-23 13:36] LABS: Appearance Clear (Clear); Bilirubin Negative (Negative); Blood Negative (Negative); Glucose, Urine Negative (Negative); Ketones Negative (Negative); Leukocyte Esterase Negative (Negative); Nitrite Negative (Negative); Protein,Urine Dip Negative (Negative); Specific Gravity <=1.005 (1.005-1.030); Urobilinogen 0.2 mg/dL (0.2)
[2022-11-23 13:36] LABS: HCG URINE TEST POSITIVE (NEGATIVE)
[2022-11-23 14:10] VITALS: BP 119/60; O2SAT 100
[2022-11-23 14:26] LABS: Bacteria None Seen /HPF (None Seen); Epithelial Cells None Seen /HPF (None Seen); Hyaline Casts NONE SEEN /LPF (0-2); RBC 0-2 /HPF (0-5); WBC 0-2 /HPF (0-5)
[2022-11-23 14:27] LABS: ADD URINE CULTURE? NO (NO)
--- NOTE | 2022-11-23 14:59 | XRAY ---
Indication: Cramping. viability. Two-dimensional transvaginal early OB ultrasound performed. Comparison: None for this . Uterus anteverted with single intrauterine gestational sac measuring 0.51 cm corresponding to 5 weeks 0 days. No pole/heart tones. Right ovary demonstrates 2 cm corpus luteal cyst. Nonvisualization left ovary. No suspicious adnexal mass or free fluid. Impression: Single intrauterine gestational sac measuring 5 weeks 0 days. No pole/heart tones presumed early . Correlate with serial beta hCG and follow-up sonogram regarding viability.
--- NOTE | 2022-11-23 15:11 | ERPHSYRPT ---
- History of Present Illness Time Seen by Provider: 11/23/22 13:00 Source: patient Exam Limitations: no limitations Patient Subjective Stated Complaint: pt states she is and began cramping last night. pt states cramping became worse today. pt states she had a period last month for 1 day. pt states she is currently ; active bowel sounds in all quads; vitals wnl; skin is PDW; no respiratory distress Triage Nursing Assessment: pt ambulated into the er; pt is axo x4; c/o cramping in ; no respiratory distress present; vitals wnl; skin PDW; pt denies fall, trauma, injury to abd; last BM 11/22/22; c/o nausea, denies vomiting; Physician History: Patient is 22-year-old female presents to our ED for evaluation of pelvic cramping. Cramping started last night. Patient states cramping worse today. No vaginal bleeding. Patient states she is . Positive home test. Patient has not seen anyone for however she is going to be following up with Dr. Rivera. No trauma. No fever. No nausea vomiting or diaphoresis. Symptoms are mild to moderate in intensity. No specific worsening or improving factors. Patient otherwise feels well. She voices no other complaints or concerns at this time. Portions of this note were created with voice recognition technology. There may be grammatical, spelling, punctuation or sound alike errors Timing/Duration: yesterday Severity: moderate Modifying Factors: Improves With: nothing Associated Symptoms: denies symptoms Allergies/Adverse Reactions: polytracin Allergy (Severe, Uncoded 11/23/22 12:56) Medication given for pink eye. Medication caused eye to swell and become more reddened. 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: [employer] - Vaccination Dates Date of 2cond Vaccination (if applicable): 2021 - Review of Systems Constitutional: No Symptoms, No Fever, No Chills Eyes: No Symptoms Ears, Nose, & Throat: No Symptoms Respiratory: No Symptoms, No Cough, No Dyspnea Cardiac: No Symptoms, No Chest Pain, No Edema, No Syncope Abdominal/Gastrointestinal: No Symptoms, No Abdominal Pain, No Nausea, No Vomiting, No Diarrhea Genitourinary Symptoms: No Symptoms, No Dysuria Musculoskeletal: No Symptoms, No Back Pain, No Neck Pain Skin: No Symptoms, No Rash Neurological: No Symptoms, No Dizziness, No Focal Weakness, No Sensory Changes Psychological: No Symptoms Endocrine: No Symptoms Hematologic/Lymphatic: No Symptoms Immunological/Allergic: No Symptoms All Other Systems: Reviewed and Negative - Past Medical History Pertinent Past Medical History: No Neurological History: No Pertinent History ENT History: No Pertinent History Cardiac History: No Pertinent History Respiratory History: No Pertinent History Endocrine Medical History: No Pertinent History Musculoskeletal History: No Pertinent History GI Medical History: No Pertinent History History: No Pertinent History Psycho-Social History: No Pertinent History Female Reproductive Disorders: No Pertinent History Other Medical History: History of ovarian cysts - Past Surgical History Past Surgical History: Yes Neuro Surgical History: No Pertinent History Cardiac: No Pertinent History Respiratory: No Pertinent History Gastrointestinal: No Pertinent History Genitourinary: No Pertinent History Musculoskeletal: No Pertinent History Female Surgical History: Dilation & Curettage, Section Other Surgical History: D&C from miscarriage summer 2017 - Social History Smoking Status: Never smoker Exposure to second hand smoke: Yes Drug Use: none Patient Lives Alone: No - Female History Hx Now: No - Nursing Vital Signs Nursing Vital Signs: Initial Vital Signs Temperature 98.6 F 11/23/22 12:57 Pulse Rate 94 H 11/23/22 12:57 Respiratory Rate 16 11/23/22 12:57 Blood Pressure 142/79 11/23/22 12:57 O2 Sat by Pulse Oximetry 100 11/23/22 12:57 Pain Scale Pain Intensity 6 - Physical Exam General Appearance: no apparent distress, alert Eye Exam: PERRL/EOMI, eyes nml inspection Ears, Nose, Throat Exam: normal ENT inspection, TMs normal, pharynx normal, moist mucous membranes Neck Exam: normal inspection, non-tender, supple, full range of motion Respiratory Exam: normal breath sounds, lungs clear, No respiratory distress Cardiovascular Exam: regular rate/rhythm, normal heart sounds, normal peripheral pulses Gastrointestinal/Abdomen Exam: soft, normal bowel sounds, No tenderness, No mass Back Exam: normal inspection, normal range of motion, No CVA tenderness, No vertebral tenderness Extremity Exam: normal inspection, normal range of motion, pelvis stable Neurologic Exam: alert, oriented x 3, cooperative, normal mood/affect, sensation nml, No motor deficits Skin Exam: normal color, warm, dry, No rash Lymphatic Exam: No adenopathy SpO2 Interpretation: normal SpO2: 100 O2 Delivery: Room Air - Course Nursing assessment & vital signs reviewed: Yes Ordered Tests: Active Orders 24 hr Category Date Time Status OB <14 WKS 1ST GESTATION [US] Stat Exams 11/23/22 14:20 Completed HCG QUALITATIVE, URINE Stat Lab 11/23/22 Completed HCG, Quantitative (Inhouse) Stat Lab 11/23/22 12:55 Completed UA W/RFX UR CULTURE Stat Lab 11/23/22 13:43 Completed Lab/Rad Data: Laboratory Results 11/23/22 11/23/22 11/23/22 Range/Units Unknown 13:43 12:55 Beta HCG, Quant 2705.1 mIU/ml Urine Color Yellow (Yellow) Urine Appearance Clear (Clear) Urine pH 6.0 (4.6-8.0) Ur Specific [place] <=1.005 (1.005-1.030) Urine Protein Negative (Negative) Urine Glucose (UA) Negative (Negative) mg/dL Urine Ketones Negative (Negative) Urine Blood Negative (Negative) Urine Nitrite Negative (Negative) Urine Bilirubin Negative (Negative) Urine Urobilinogen 0.2 (0.2) mg/dL Ur Leukocyte Esterase Negative (Negative) U Hyaline Cast (Auto) NONE SEEN (0-2) /LPF Urine Microscopic RBC 0-2 (0-5) /HPF Urine Microscopic WBC 0-2 (0-5) /HPF Ur Epithelial Cells None Seen (None Seen) /HPF Urine Bacteria None Seen (None Seen) /HPF Urine Culture Reflexed NO (NO) Urine HCG, Qual POSITIVE (NEGATIVE) - Progress Progress: improved Progress Note: 22-year-old female presents to our ED for evaluation of pelvic cramping. Kevin pritchett had home positive test. Cramping started yesterday. Cramping worse today. Physical exam essentially nonremarkable. Urinalysis negative for UTI. Pelvic ultrasound reveals a IUP at 5 weeks. Gestational sac visible only. Beta quant 2705. No indication for further work-up. Will discharge home. Patient will follow-up with their primary care doctor within 48 hours for evaluation. Complexity of problem addressed is moderate, new diagnosis with uncertain prognosis. Complexity of data reviewed and analyzed is moderate. Urinalysis ordered and analyzed by Dr. Johnson. Beta quant negative. Ultrasound shows a P Risk of complication and or risk morbidity/patient mortality is minimal. Patient took ibuprofen for pelvic cramping prior to arrival. Patient consulted on the safety profile of [id number] medications. Patient advised to avoid ibuprofen. She will take Tylenol instead for pain as needed. Patient voices no other complaints or concerns at this time. Portions of this note were created with voice recognition technology. There may be grammatical, spelling, punctuation or sound alike errors 11/23/22 15:13 Counseled pt/family regarding: lab results, diagnosis, need for follow-up, rad results - Departure Departure Disposition: Home Clinical Impression: , Pelvic cramping Condition: Stable Critical Care Time: No Referrals: PADMINI RIVERA MD [Primary Care Provider] - Follow up/PCP as directed Additional Instructions: Discharge/Care Plan BRIAN SCHULTZ was seen on 11/23/22 in the Emergency Room. The patient was counseled regarding Diagnosis,Lab results, Imaging studies, need for follow up and when to return to the Emergency Room. Prescriptions given: Discharge Note I have spoken with the patient and/or caregivers. I have explained the patient's condition, diagnosis and treatment plan based on the information available to me at this time. I have answered the patient's and/or caregiver's questions and addressed any concerns. The patient and/or caregivers have as good understanding of the patient's diagnosis, condition and treatment plan as can be expected at this point. The vital signs have been stable. The patient's condition is stable and appropriate for discharge from the emergency department. The patient will pursue further outpatient evaluation with the primary care physician or other designated or consulting physician as outlined in the discharge instructions. The patient and/or caregivers are agreeable to this plan of care and follow-up instructions have been explained in detail. The patient and/or caregivers have received these instruction. The patient/and or caregivers are aware that any significant change in condition or worsening of symptoms should prompt an immediate return to this or the closest emergency department or call 911.
== END 2022-11-23 15:22 | disposition home or self-care (01) ==
LOC: ED 12:43
DX: Z34.81 Encounter for supervision of other normal pregnancy, first trimester (principal); R10.2 Pelvic and perineal pain
CPT/HCPCS: 36415; 76801; 81001; 81025; 84702; 99283

== ENCOUNTER 2023-02-23 00:29 | Emergency (ER) | payer OTHER ==
[2023-02-23 01:20] VITALS: TEMP 97.8
[2023-02-23 01:56] LABS: Appearance Clear (Clear); Bacteria None Seen /HPF (None Seen); Bilirubin Negative (Negative); Blood Negative (Negative); Epithelial Cells None Seen /HPF (None Seen); Glucose, Urine Negative (Negative); Hyaline Casts NONE SEEN /LPF (0-2); Ketones Negative (Negative); Leukocyte Esterase Negative (Negative); Nitrite Negative (Negative); Protein,Urine Dip Negative (Negative); RBC 0-2 /HPF (0-5); Specific Gravity <=1.005 (1.005-1.030); Urobilinogen 0.2 mg/dL (0.2); WBC 0-2 /HPF (0-5)
[2023-02-23 02:19] VITALS: O2SAT 100
[2023-02-23 02:30] LABS: Absolute Neutrophil Ct (ANC) 8.13 x10^3/uL (1.4-6.9); BASOPHIL % 0.3 % (0.0-0.4); Basophil (Absolute #) 0.03 x10^3/uL (0-0.4); Eosinophil % 0.9 % (0.00-5.0); Hematocrit 36.1 % (35-47); Hemoglobin 12.4 g/dL (12.0-16.0); IMMATURE GRAN # 0.08 x10^3u/L (0.00-0.03); IMMATURE GRAN % 0.7 % (0.00-0.4); Lymphocyte (Absolute #) 1.82 x10^3/uL (1.0-4.6); Lymphocytes % 16.9 % (24.0-44.0); Mean Cell Volume 92.3 fL (78-100); Mean Corpuscular Hemoglobin 31.7 pg (26-32); Mean Corpuscular Hgb Concent. 34.3 g/dL (32-36); Mean Platelet Volume 8.8 fL (7.5-11.0); Monocyte (Absolute #) 0.64 x10^3/uL (0.0-1.3); Monocytes % 5.9 % (0.0-12.0); Neutrophil % 75.3 % (36.0-66.0); Platelet Count 274 x10^3/uL (150-450); Red Blood Count 3.91 x10^6/uL (4.1-5.4); Red Cell Distribution Width 12.7 % (11.5-14.0); White Blood Count 10.8 x10^3/uL (4.0-10.5)
[2023-02-23 02:35] LABS: ADD URINE CULTURE? NO (NO)
[2023-02-23 02:44] LABS: ALBUMIN 4.1 g/dL (3.5-5.0); ALKALINE PHOSPHATASE 71 U/L (38-126); ANION GAP 12.7 MEQ/L (5-15); BLOOD UREA NITROGEN 6 mg/dL (7-17); CHLORIDE 104 mmol/L (98-107); Calcium 9.2 mg/dL (8.4-10.2); Carbon Dioxide 22 mmol/L (22-30); Creatinine 1 0.44 mg/dL (0.52-1.04); EST GLOMERULAR FILTRATION RATE > 60.0 ML/MIN; Glucose 86 mg/dL (74-106); Potassium 3.7 mmol/L (3.5-5.1); SGOT/AST 21 U/L (14-36); SGPT/ALT 13 U/L (0-35); SODIUM 135 mmol/L (137-145); Total Protein 7.5 g/dL (6.3-8.2)
--- NOTE | 2023-02-23 03:07 | ERPHSYRPT ---
- History of Present Illness Time Seen by Provider: 02/23/23 03:07 Source: patient Exam Limitations: no limitations Patient Subjective Stated Complaint: pt states that on Tuesday02/21/23 mid while working around the house and yard she started experiencing intermittent cr amping to her right lower abdomen that was only present with certain movements and that she had a pulled muscle or something similar but she notified her OB MD Dr Benitez who recommended that she come to ED at that time but pt didn't come Tuesday because she thought it was a pulled muscle. Tuesday intermittently experienced the same cramping only with movements while again working around the house/ yard. Tuesday night at approx 2230 she felt warm liquid running down her leg and it was found to be dark red blood. she sat on toilet and cleaned self up and placed a pad in her underwear. she denies having any more blood on her pad. she states that she has had small amount of white discharge for the last couple weeks but denies itching or other perineal symptoms. Triage Nursing Assessment: pt ambulated to room 7 independently with slow steady gait after standing on scales for weight acquisition and to restroom for urine sample. pt is alert and oriented times three, able to speak in complete sentences, able to move all extremities, and with resp even and unlabored. skin warm, pink, dry, and intact. Fire RN OB nurse came and listened to heart tones which were present with a rate of 140. pt denies pain at this time, sob, n/v, diarrhea, difficulty with urination or bowel elimination. denies lightheadedness or dizziness at this time. Physician History: 22-year-old female currently 18 weeks presents to our ED for evaluation of pelvic cramping and vaginal bleeding. Symptoms started yesterday. Patient presents today for an evaluation. Patient states she contacted office who advised patient come to our ED. No active cramping no active bleeding. Patient feels well she is asymptomatic. Symptoms been present were mild to moderate in intensity. No specific worsening or improving factors. Patient voices no other complaints or concerns at this time. Portions of this note were created with voice recognition technology. There may be grammatical, spelling, punctuation or sound alike errors Timing/Duration: yesterday Severity: mild Modifying Factors: Improves With: nothing Associated Symptoms: denies symptoms Allergies/Adverse Reactions: polytracin Allergy (Severe, Uncoded 11/23/22 12:56) Medication given for pink eye. Medication caused eye to swell and become more reddened. Home Medications: Doxylamine Succinate [Unisom Sleep Aid] 25 mg PO HS PRN 02/23/23 [History] Pnv No.95/Ferrous Fum/Folic AC [ Vitamin Tablet] 1 tablet PO DAILY 02/23/23 [History] Hx Tetanus, Diphtheria Vaccination/Date Given: Yes Hx Influenza Vaccination/Date Given: No Hx Pneumococcal Vaccination/Date Given: No Immunizations Up to Date: Yes Travel Risk - International Travel Have you traveled outside of the country in past 3 weeks: No - Coronavirus Screening Are you exhibiting any of the following symptoms?: No Close contact with a COVID-19 positive Pt in past 14-21 Days: No - Vaccine Status Have you recieved a Covid-19 vaccination: Yes 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[employer] - Vaccination Dates Date of 2cond Vaccination (if applicable): 2021 - Review of Systems Constitutional: No Symptoms, No Fever, No Chills Eyes: No Symptoms Ears, Nose, & Throat: No Symptoms Respiratory: No Symptoms, No Cough, No Dyspnea Cardiac: No Symptoms, No Chest Pain, No Edema, No Syncope Abdominal/Gastrointestinal: No Symptoms, No Abdominal Pain, No Nausea, No Vomiting, No Diarrhea Genitourinary Symptoms: No Symptoms, No Dysuria Musculoskeletal: No Symptoms, No Back Pain, No Neck Pain Skin: No Symptoms, No Rash Neurological: No Symptoms, No Dizziness, No Focal Weakness, No Sensory Changes Psychological: No Symptoms Endocrine: No Symptoms Hematologic/Lymphatic: No Symptoms Immunological/Allergic: No Symptoms All Other Systems: Reviewed and Negative - Past Medical History Pertinent Past Medical History: Yes Neurological History: No Pertinent History ENT History: No Pertinent History Cardiac History: No Pertinent History Respiratory History: No Pertinent History Endocrine Medical History: No Pertinent History Musculoskeletal History: No Pertinent History GI Medical History: No Pertinent History History: No Pertinent History Psycho-Social History: Depression Female Reproductive Disorders: No Pertinent History Other Medical History: History of ovarian cysts - Past Surgical History Past Surgical History: Yes Neuro Surgical History: No Pertinent History Cardiac: No Pertinent History Respiratory: No Pertinent History Gastrointestinal: No Pertinent History Genitourinary: No Pertinent History Musculoskeletal: No Pertinent History Female Surgical History: Dilation & Curettage, Section Other Surgical History: D&C from miscarriage summer 2017 - Social History Smoking Status: Never smoker Exposure to second hand smoke: No Drug Use: none Patient Lives Alone: No - Female History Hx Last Menstrual Period: 10/15/22 Hx Now: Yes (18wks 2 days) Gestational Age: 18wks 2 da - Nursing Vital Signs Nursing Vital Signs: Initial Vital Signs Temperature 97.8 F 02/23/23 00:52 Pulse Rate 87 02/23/23 00:52 Respiratory Rate 16 02/23/23 00:52 Blood Pressure 109/63 02/23/23 00:52 O2 Sat by Pulse Oximetry 97 02/23/23 00:52 Pain Scale Pain Intensity 0 - Physical Exam General Appearance: no apparent distress, alert Eye Exam: PERRL/EOMI, eyes nml inspection Ears, Nose, Throat Exam: normal ENT inspection, TMs normal, pharynx normal, moist mucous membranes Neck Exam: normal inspection, non-tender, supple, full range of motion Respiratory Exam: normal breath sounds, lungs clear, No respiratory distress Cardiovascular Exam: regular rate/rhythm, normal heart sounds, normal peripheral pulses Gastrointestinal/Abdomen Exam: soft, normal bowel sounds, No tenderness, No mass Back Exam: normal inspection, normal range of motion, No CVA tenderness, No vertebral tenderness Extremity Exam: normal inspection, normal range of motion, pelvis stable Neurologic Exam: alert, oriented x 3, cooperative, normal mood/affect, sensation nml, No motor deficits Skin Exam: normal color, warm, dry, No rash Lymphatic Exam: No adenopathy SpO2 Interpretation: normal SpO2: 100 O2 Delivery: Room Air - Course Nursing assessment & vital signs reviewed: Yes - Radiology Ultrasound Exam OB Ultrasound: discussed w/radiologist (Per [facility]ge man essentially nonremarkable pelvic ultrasound.) Ordered Tests: Active Orders 24 hr Category Date Time Status AMA [Release AMA] OM.NOW Care 02/23/23 03:51 Completed OB >14 WKS 1st GESTATION [US] Stat Exams 02/23/23 01:37 Taken CBC W DIFF Stat Lab 02/23/23 02:20 Completed CMP Stat Lab 02/23/23 02:20 Completed HCG, Quantitative (Inhouse) Stat Lab 02/23/23 02:20 Completed UA W/RFX UR CULTURE Stat Lab 02/23/23 01:46 Completed Lab/Rad Data: Laboratory Result Diagrams 02/23/23 02:20 02/23/23 02:20 Laboratory Results 02/23/23 02/23/23 02/23/23 Range/Units 02:20 02:20 02:20 WBC 10.8 H (4.0-10.5) x10^3/uL RBC 3.91 L (4.1-5.4) x10^6/uL Hgb 12.4 (12.0-16.0) g/dL Hct 36.1 (35-47) % MCV 92.3 (78-100) fL MCH 31.7 (26-32) pg MCHC 34.3 (32-36) g/dL RDW 12.7 (11.5-14.0) % Plt Count 274 (150-450) x10^3/uL MPV 8.8 (7.5-11.0) fL Gran % 75.3 H (36.0-66.0) % Immature Gran % (Auto) 0.7 H (0.00-0.4) % Nucleat RBC Rel Count 0.0 (0.00-0.1) % Eos # (Auto) 0.10 (0-0.5) x10^3/uL Immature Gran # (Auto) 0.08 H (0.00-0.03) x10^3u/L Absolute Lymphs (auto) 1.82 (1.0-4.6) x10^3/uL Absolute Monos (auto) 0.64 (0.0-1.3) x10^3/uL Absolute Nucleated RBC 0.00 (0.00-0.01) x10^3u/L Lymphocytes % 16.9 L (24.0-44.0) % Monocytes % 5.9 (0.0-12.0) % Eosinophils % 0.9 (0.00-5.0) % Basophils % 0.3 (0.0-0.4) % Absolute Granulocytes 8.13 H (1.4-6.9) x10^3/uL Basophils # 0.03 (0-0.4) x10^3/uL Sodium 135 L (137-145) mmol/L Potassium 3.7 (3.5-5.1) mmol/L Chloride 104 (98-107) mmol/L Carbon Dioxide 22 (22-30) mmol/L Anion Gap 12.7 (5-15) MEQ/L BUN 6 L (7-17) mg/dL Creatinine 0.44 L (0.52-1.04) mg/dL Estimated GFR > 60.0 ML/MIN Glucose 86 (74-106) mg/dL Calcium 9.2 (8.4-10.2) mg/dL Total Bilirubin 0.30 (0.2-1.3) mg/dL AST 21 (14-36) U/L ALT 13 (0-35) U/L Alkaline Phosphatase 71 (38-126) U/L Serum Total Protein 7.5 (6.3-8.2) g/dL Albumin 4.1 (3.5-5.0) g/dL Beta HCG, Quant 39319 mIU/ml Urine Color (Yellow) Urine Appearance (Clear) Urine pH (4.6-8.0) Ur Specific [place] (1.005-1.030) Urine Protein (Negative) Urine Glucose (UA) (Negative) mg/dL Urine Ketones (Negative) Urine Blood (Negative) Urine Nitrite (Negative) Urine Bilirubin (Negative) Urine Urobilinogen (0.2) mg/dL Ur Leukocyte Esterase (Negative) U Hyaline Cast (Auto) (0-2) /LPF Urine Microscopic RBC (0-5) /HPF Urine Microscopic WBC (0-5) /HPF Ur Epithelial Cells (None Seen) /HPF Urine Bacteria (None Seen) /HPF Urine Culture Reflexed (NO) ABO Group Rh Factor Antibody Screen (NEGATIVE) 02/23/23 02/23/23 Range/Units 02:20 01:46 WBC (4.0-10.5) x10^3/uL RBC (4.1-5.4) x10^6/uL Hgb (12.0-16.0) g/dL Hct (35-47) % MCV (78-100) fL MCH (26-32) pg MCHC (32-36) g/dL RDW (11.5-14.0) % Plt Count (150-450) x10^3/uL MPV (7.5-11.0) fL Gran % (36.0-66.0) % Immature Gran % (Auto) (0.00-0.4) % Nucleat RBC Rel Count (0.00-0.1) % Eos # (Auto) (0-0.5) x10^3/uL Immature Gran # (Auto) (0.00-0.03) x10^3u/L Absolute Lymphs (auto) (1.0-4.6) x10^3/uL Absolute Monos (auto) (0.0-1.3) x10^3/uL Absolute Nucleated RBC (0.00-0.01) x10^3u/L Lymphocytes % (24.0-44.0) % Monocytes % (0.0-12.0) % Eosinophils % (0.00-5.0) % Basophils % (0.0-0.4) % Absolute Granulocytes (1.4-6.9) x10^3/uL Basophils # (0-0.4) x10^3/uL Sodium (137-145) mmol/L Potassium (3.5-5.1) mmol/L Chloride (98-107) mmol/L Carbon Dioxide (22-30) mmol/L Anion Gap (5-15) MEQ/L BUN (7-17) mg/dL Creatinine (0.52-1.04) mg/dL Estimated GFR ML/MIN Glucose (74-106) mg/dL Calcium (8.4-10.2) mg/dL Total Bilirubin (0.2-1.3) mg/dL AST (14-36) U/L ALT (0-35) U/L Alkaline Phosphatase (38-126) U/L Serum Total Protein (6.3-8.2) g/dL Albumin (3.5-5.0) g/dL Beta HCG, Quant mIU/ml Urine Color Yellow (Yellow) Urine Appearance Clear (Clear) Urine pH 6.0 (4.6-8.0) Ur Specific [place] <=1.005 (1.005-1.030) Urine Protein Negative (Negative) Urine Glucose (UA) Negative (Negative) mg/dL Urine Ketones Negative (Negative) Urine Blood Negative (Negative) Urine Nitrite Negative (Negative) Urine Bilirubin Negative (Negative) Urine Urobilinogen 0.2 (0.2) mg/dL Ur Leukocyte Esterase Negative (Negative) U Hyaline Cast (Auto) NONE SEEN (0-2) /LPF Urine Microscopic RBC 0-2 (0-5) /HPF Urine Microscopic WBC 0-2 (0-5) /HPF Ur Epithelial Cells None Seen (None Seen) /HPF Urine Bacteria None Seen (None Seen) /HPF Urine Culture Reflexed NO (NO) ABO Group O Rh Factor POSITIVE Antibody Screen NEGATIVE (NEGATIVE) - Progress Progress: improved Progress Note: Patient is a 22-year-old female currently 18 weeks presents to our ED for evaluation of vaginal bleeding and cramping. Positive heart tones. Pelvic ultrasound essentially nonremarkable. All appears normal. Patient declined a pelvic exam. Patient states she had a pelvic exam by her STEAMFITTER SUPERVISOR physician and does not feel the other 1 is necessary. Case discussed with . No further recommendations. He agrees with disposition. Patient agrees to follow-up with her STEAMFITTER SUPERVISOR physician within 48 hours for reevaluation. Portions of this note were created with voice recognition technology. There may be grammatical, spelling, punctuation or sound alike errors Complexity of problem addressed is moderate acute complicated Complexity of data reviewed and analyzed is extensive. Test ordered test reviewed and analyzed. Case and management discussed with Dr Benitez STEAMFITTER SUPERVISOR physician.. Rise of complication and a risk morbidity/mortality of patient management is low. Patient agrees to follow-up with her STEAMFITTER SUPERVISOR physician within 48 hours. Vital stable. Time spent to discharge patient approximately 10 minutes. Plan of care established for shared decision making. No social determinants of health present to impede follow-up. Portions of this note were created with voice recognition technology. There may be grammatical, spelling, punctuation or sound alike errors 02/23/23 03:15 Discussed with : Jennifer (Case discussed with Dr. Larkin by 3:07 AM) Counseled pt/family regarding: lab results, diagnosis - Departure Departure Disposition: Home Clinical Impression: Vaginal bleeding in patient at less than 20 weeks gestation, Threatened miscarriage Condition: Stable Critical Care Time: No Referrals: PADMINI MENDEZ MD [Primary Care Provider] - Follow up/PCP as directed Additional Instructions: Discharge/Care Plan BRIAN SCHULTZ was seen on 02/23/23 in the Emergency Room. The patient was counseled regarding Diagnosis,Lab results, Imaging studies, need for follow up and when to return to the Emergency Room. Prescriptions given: Discharge Note I have spoken with the patient and/or caregivers. I have explained the patient's condition, diagnosis and treatment plan based on the information available to me at this time. I have answered the patient's and/or caregiver's questions and addressed any concerns. The patient and/or caregivers have as good understanding of the patient's diagnosis, condition and treatment plan as can be expected at this point. The vital signs have been stable. The patient's condition is stable and appropriate for discharge from the emergency department. The patient will pursue further outpatient evaluation with the primary care shelly sician or other designated or consulting physician as outlined in the discharge instructions. The patient and/or caregivers are agreeable to this plan of care and follow-up instructions have been explained in detail. The patient and/or caregivers have received these instruction. The patient/and or caregivers are aware that any significant change in condition or worsening of symptoms should prompt an immediate return to this or the closest emergency department or call 911.
[2023-02-23 03:24] VITALS: BP 96/42; PULSE 69; RESP 16
[2023-02-23 03:27] LABS: ABO TYPING O
[2023-02-23 03:28] LABS: Antibody Screen NEGATIVE (NEGATIVE); RH TYPING POSITIVE
[2023-02-23] MEDS ORDERED: Sodium Chloride 0.9% 1000 ML 1,000 ML IV STA (05:21)
[2023-02-23] MEDS ORDERED: TORAdol 30 mg Injection IV ONE (05:21)
--- NOTE | 2023-02-23 09:02 | XRAY ---
Indication: Cramping and spotting. Two-dimensional transabdominal early OB ultrasound performed. Comparison: November 23, 2022 Again single intrauterine with now presence of a pole. heart rate 140 bpm. Composite mean gestational age is 18 weeks 1 day. Anterior placenta without abruption/previa. ERUM is 8.1 cm. Cervical length is 4.1 cm. Impression: Single viable intrauterine measuring 18 weeks 1 day. Expected date confinement is July 26, 2023. No acute findings. Comment: Preliminary report was given.
== END 2023-02-23 03:50 | disposition left against medical advice (07) ==
LOC: ED 00:29
DX: O20.0 Threatened abortion (principal); Z3A.18 18 weeks gestation of pregnancy
CPT/HCPCS: 36415; 76805; 80053; 81001; 84702; 85025; 86850; 86900; 86901; 99283

== ENCOUNTER 2023-04-27 11:31 | Observation (INO) | payer OTHER ==
[2023-04-27 12:02] VITALS: BP 100/58; PULSE 95; RESP 18; TEMP 98.4
[2023-04-27 12:33] LABS: Amphetamine,Urine NEGATIVE (NEGATIVE); Barbiturate,Urine NEGATIVE (NEGATIVE); Benzodiazepine,Urine NEGATIVE (NEGATIVE); Cocaine,Urine NEGATIVE (NEGATIVE); Methadone,Urine NEGATIVE (NEGATIVE); Opiate,Urine NEGATIVE (NEGATIVE); PCP,Urine NEGATIVE (NEGATIVE); THC,Urine NEGATIVE (NEGATIVE)
[2023-04-27 13:13] LABS: Appearance Clear (Clear); Bilirubin Negative (Negative); Blood Negative (Negative); Glucose, Urine Negative (Negative); Ketones Negative (Negative); Leukocyte Esterase Trace (Negative); Nitrite Negative (Negative); Protein,Urine Dip Negative (Negative); Specific Gravity <=1.005 (1.005-1.030); Urobilinogen 0.2 mg/dL (0.2)
[2023-04-27 13:17] LABS: Bacteria Rare /HPF (None Seen); Epithelial Cells Rare /HPF (None Seen); Hyaline Casts NONE SEEN /LPF (0-2); RBC 0-2 /HPF (0-5)
[2023-04-27 13:18] LABS: ADD URINE CULTURE? NO (NO)
== END 2023-04-27 13:00 | disposition home or self-care (01) ==
LOC: MED SURG 11:31 → UNDOADMOB 11:31 → UNDODISOB 13:00
PROVIDERS: ADMIT Obstetrics & Gynecology; ATTEND Obstetrics & Gynecology
DX: Z34.82 Encounter for supervision of other normal pregnancy, second trimester (principal); Z3A.27 27 weeks gestation of pregnancy
CPT/HCPCS: 80307; 81001

== ENCOUNTER 2023-06-14 16:49 | Observation (INO) | payer OTHER ==
[2023-06-14 17:40] VITALS: BP 103/62; PULSE 91; RESP 20; TEMP 98.4; O2SAT 97
== END 2023-06-14 18:00 | disposition home or self-care (01) ==
LOC: OB 16:49
PROVIDERS: ADMIT Obstetrics & Gynecology; ATTEND Obstetrics & Gynecology
DX: Z34.83 Encounter for supervision of other normal pregnancy, third trimester (principal); Z3A.34 34 weeks gestation of pregnancy

== ENCOUNTER 2023-07-02 03:30 | Inpatient (IN) | payer OTHER ==
[2023-07-02 04:21] LABS: ADD URINE CULTURE? YES (NO); Appearance Clear (Clear); Bacteria None Seen /HPF (None Seen); Bilirubin Negative (Negative); Blood Small (Negative); Epithelial Cells None Seen /HPF (None Seen); Glucose, Urine Negative (Negative); Hyaline Casts NONE SEEN /LPF (0-2); Ketones Negative (Negative); Leukocyte Esterase Trace (Negative); Nitrite Negative (Negative); Protein,Urine Dip Negative (Negative); Urobilinogen 0.2 mg/dL (0.2); WBC 0-2 /HPF (0-5)
[2023-07-02 04:23] LABS: Amphetamine,Urine NEGATIVE (NEGATIVE); Barbiturate,Urine NEGATIVE (NEGATIVE); Benzodiazepine,Urine NEGATIVE (NEGATIVE); Cocaine,Urine NEGATIVE (NEGATIVE); Methadone,Urine NEGATIVE (NEGATIVE); Opiate,Urine NEGATIVE (NEGATIVE); PCP,Urine NEGATIVE (NEGATIVE); THC,Urine NEGATIVE (NEGATIVE)
[2023-07-02] MEDS ORDERED: Lactated Ringers 2,000 ML IV ONE ×2 (04:52→10:32)
[2023-07-02] MEDS ORDERED: Celestone Soluspan 6MG/ML IM ONE (05:15)
[2023-07-02 06:08] LABS: Absolute Neutrophil Ct (ANC) 7.53 x10^3/uL (1.4-6.9); BASOPHIL % 0.4 % (0.0-0.4); Basophil (Absolute #) 0.04 x10^3/uL (0-0.4); Eosinophil % 0.7 % (0.00-5.0); Eosinophil (Absolute #) 0.07 x10^3/uL (0-0.5); Hemoglobin 10.5 g/dL (12.0-16.0); IMMATURE GRAN # 0.09 x10^3u/L (0.00-0.03); IMMATURE GRAN % 0.9 % (0.00-0.4); Lymphocyte (Absolute #) 1.72 x10^3/uL (1.0-4.6); Lymphocytes % 16.9 % (24.0-44.0); Mean Cell Volume 86.7 fL (78-100); Mean Corpuscular Hemoglobin 28.5 pg (26-32); Mean Corpuscular Hgb Concent. 32.8 g/dL (32-36); Mean Platelet Volume 9.8 fL (7.5-11.0); Monocytes % 6.9 % (0.0-12.0); Neutrophil % 74.2 % (36.0-66.0); Platelet Count 243 x10^3/uL (150-450); Red Blood Count 3.69 x10^6/uL (4.1-5.4); Red Cell Distribution Width 12.5 % (11.5-14.0); White Blood Count 10.2 x10^3/uL (4.0-10.5)
[2023-07-02 06:28] LABS: INR 0.93 (0.8-3.0); PROTIME 10.2 SECONDS (9.4-12.5); PTT 24.8 SECONDS (25.1-36.5)
[2023-07-02 07:04] LABS: ABO TYPING O; Antibody Screen NEGATIVE (NEGATIVE); RH TYPING POSITIVE
[2023-07-02] MEDS ORDERED: Nubain 10 MG/ML IV PRN (08:35)
[2023-07-02] MEDS ORDERED: CEFAZOLIN 2 GM-D5W BAG** 2 GM/50 ML ML IV SCH (09:00)
[2023-07-02] MEDS ORDERED: Pepcid 20 MG VIAL IV SCH (09:00)
[2023-07-02] MEDS ORDERED: Reglan 10 MG/2 ML IV SCH (09:00)
[2023-07-02] MEDS ORDERED: Lactated Ringers 1,000 ML IV SCH ×2 (09:00)
[2023-07-02] MEDS ORDERED: SOD CITRATE-CITRIC ACID SOLN PO SCH (09:00)
[2023-07-02] MEDS ORDERED: Zithromax 500 MG/ 250 ML NaCl Premix 500 MG/250 ML IVPB IV ONE (09:26)
[2023-07-02] MEDS ORDERED: Pitocin 10 UNITS/ML ONE (09:45)
[2023-07-02] MEDS ORDERED: Astramorph-Pf 5 MG/10 ML ONE (09:45)
[2023-07-02] MEDS ORDERED: FERREX 150 PO SCH (10:00)
[2023-07-02] MEDS ORDERED: PHENYLEPHRINE HCL ONE (10:26)
[2023-07-02] MEDS ORDERED: Naropin 0.5% 30 ML VIAL ONE (10:52)
[2023-07-02] MEDS ORDERED: Epinephrine Preservative Free 1 MG/ML ONE (10:52)
[2023-07-02] MEDS ORDERED: Zofran 4 MG/2 ML VIAL ONE (10:59)
[2023-07-02] MEDS ORDERED: Dermoplast Spray TP PRN (11:00)
[2023-07-02] MEDS ORDERED: MOTRIN 400 MG PO PRN (11:00)
[2023-07-02] MEDS ORDERED: Mylicon 80MG PO PRN (11:00)
[2023-07-02] MEDS ORDERED: CLARITIN 10 MG PO PRN (11:00)
[2023-07-02] MEDS ORDERED: LANSINOH 40 GM TOP PRN (11:00)
[2023-07-02] MEDS ORDERED: Zofran 4 MG/2 ML VIAL IV PRN (11:00)
[2023-07-02] MEDS ORDERED: HOLD NARCOTIC ANALGESICS AND SEDATIVES X24 HR MC PRN (11:00)
[2023-07-02] MEDS ORDERED: DEMEROL 50 MG ONE (11:31)
[2023-07-02] MEDS ORDERED: Adacel Vial IM ONE (12:00)
[2023-07-02] MEDS ORDERED: M-M-R II Vaccine With Diluent SQ ONE (12:00)
[2023-07-02] MEDS: Dextrose 5%-Lr IV Solution 1000 ML 1,000 ML IV SCH ×2 (12:25→20:18)
[2023-07-02] MEDS ORDERED: DEMEROL 50 MG IV PRN (13:24)
[2023-07-02] MEDS ORDERED: Narcan 0.4 MG/ML IV PRN (13:24)
[2023-07-02] MEDS: BENADRYL 50 MG/ML IV PRN ×2 (14:05→21:46)
[2023-07-02] MEDS: CEFAZOLIN 2 GM-D5W BAG** 2 GM/50 ML ML IV SCH (18:13)
[2023-07-02] MEDS: PERCOCET TABLET 5/325MG PO PRN (20:13)
[2023-07-02] MEDS: Docusate Sodium 100 MG PO SCH (21:46)
[2023-07-02] MEDS: BUSPAR 5 MG PO SCH (21:46)
[2023-07-02] MEDS: TORAdol 30 mg Injection IV PRN (21:47)
[2023-07-03] MEDS: CEFAZOLIN 2 GM-D5W BAG** 2 GM/50 ML ML IV SCH (02:10)
[2023-07-03] MEDS: PERCOCET TABLET 5/325MG PO PRN (02:28)
[2023-07-03] MEDS: BENADRYL 50 MG/ML IV PRN (04:02)
[2023-07-03 06:09] LABS: Absolute Neutrophil Ct (ANC) 14.69 x10^3/uL (1.4-6.9); BASOPHIL % 0.2 % (0.0-0.4); Basophil (Absolute #) 0.04 x10^3/uL (0-0.4); Eosinophil (Absolute #) 0 x10^3/uL (0-0.5); Hematocrit 25.7 % (35-47); Hemoglobin 8.3 g/dL (12.0-16.0); IMMATURE GRAN # 0.15 x10^3u/L (0.00-0.03); IMMATURE GRAN % 0.8 % (0.00-0.4); Lymphocyte (Absolute #) 2.21 x10^3/uL (1.0-4.6); Mean Cell Volume 88.3 fL (78-100); Mean Corpuscular Hemoglobin 28.5 pg (26-32); Mean Corpuscular Hgb Concent. 32.3 g/dL (32-36); Mean Platelet Volume 10.2 fL (7.5-11.0); Monocyte (Absolute #) 1.32 x10^3/uL (0.0-1.3); Monocytes % 7.2 % (0.0-12.0); Neutrophil % 79.8 % (36.0-66.0); Platelet Count 259 x10^3/uL (150-450); Red Blood Count 2.91 x10^6/uL (4.1-5.4); Red Cell Distribution Width 12.8 % (11.5-14.0); White Blood Count 18.4 x10^3/uL (4.0-10.5)
[2023-07-03] MEDS: TORAdol 30 mg Injection IV PRN ×2 (07:41→15:15)
--- NOTE | 2023-07-03 09:10 | PCM.NOTE ---
Date and Time: 07/03/23906 Subjective Assessment: pod 1 sp csection pt resting in bed and doing well. able to ambulate and tolerate diet vss afebrile abd; soft incision c/d/intact uterus; firm lochia; mild hgb. 8.3 a/p sp csection pod 1 with postsurgical anemia anticipate discharge tomorrow will increase iron supplementation to tid OBJECTIVE DATA Vital Signs: Vital Signs - 24 hr Temp Pulse Resp BP Pulse Ox 07/03/23 07:50 98.2 F 72 20 100/56 96 07/03/23 06:49 96 07/03/23 06:42 96 07/03/23 05:00 97 07/03/23 04:00 98.1 F 83 20 96 07/03/23 03:00 98.8 F 79 20 97/51 96 07/03/23 02:00 96 07/03/23 01:00 96 07/03/23 00:00 94 L 07/02/23 23:00 96 07/02/23 22:00 96 07/02/23 21:00 76 20 96 07/02/23 20:00 98.7 F 86 18 90/54 98 07/02/23 16:00 97.7 F 86 14 90/54 97 07/02/23 15:00 97.7 F 69 14 95/50 97 07/02/23 13:45 97.8 F 96 H 14 105/53 98 07/02/23 13:15 98.1 F 91 H 14 94/51 97 07/02/23 12:45 97.7 F 85 14 105/53 98 07/02/23 12:30 98.4 F 88 14 94/52 99 07/02/23 12:15 97.9 F 102 H 16 94/51 100 07/02/23 12:00 97.8 F 90 18 100/54 99 07/02/23 10:00 97.8 F 84 14 107/62 98 07/02/23 09:25 97.7 F 118 H 18 139/65 95 Pain Assessment - Last Documented Pain Intensity [Bilateral 6 Lower Anterior/Posterior] Pain Intensity 6 Pain Scale Used 0-10 Pain Scale Intake and Output: Intake & Output 06/30/23 07/01/23 07/02/23 07/03/23 11:59 11:59 11:59 11:59 Intake Total 2700 Output Total 6600 Balance -3900 Weight 78.925 kg Lab Results: Lab Results-Last 24 Hours 07/03/23 Range/Units 05:10 WBC 18.4 H (4.0-10.5) x10^3/uL RBC 2.91 L (4.1-5.4) x10^6/uL Hgb 8.3 L D (12.0-16.0) g/dL Hct 25.7 L (35-47) % MCV 88.3 (78-100) fL MCH 28.5 (26-32) pg MCHC 32.3 (32-36) g/dL RDW 12.8 (11.5-14.0) % Plt Count 259 (150-450) x10^3/uL MPV 10.2 (7.5-11.0) fL Gran % 79.8 H (36.0-66.0) % Immature Gran % (Auto) 0.8 H (0.00-0.4) % Nucleat RBC Rel Count 0.0 (0.00-0.1) % Eos # (Auto) 0 (0-0.5) x10^3/uL Immature Gran # (Auto) 0.15 H (0.00-0.03) x10^3u/L Absolute Lymphs (auto) 2.21 (1.0-4.6) x10^3/uL Absolute Monos (auto) 1.32 H (0.0-1.3) x10^3/uL Absolute Nucleated RBC 0.00 (0.00-0.01) x10^3u/L Lymphocytes % 12.0 L (24.0-44.0) % Monocytes % 7.2 (0.0-12.0) % Eosinophils % 0.0 (0.00-5.0) % Basophils % 0.2 (0.0-0.4) % Absolute Granulocytes 14.69 H (1.4-6.9) x10^3/uL Basophils # 0.04 (0-0.4) x10^3/uL Multi-Disciplinary Progress Notes: Multi-Disciplinary Progress Notes 07/02/23 10:53 Respiratory Note by Fani Au Rt standby for . No respiratory intervention needed at this time. Initialized on 07/02/23 10:53 - END OF NOTE Assessment/Plan (1) Status post delivery Current Visit: Yes Status: Acute Code(s): Z98.891 - HISTORY OF UTERINE SCAR FROM PREVIOUS SURGERY
[2023-07-03] MEDS ORDERED: Docusate Sodium 100 MG PO SCH (10:00)
[2023-07-03] MEDS: FEOSOL 325 MG PO SCH ×3 (10:18→22:14)
[2023-07-03] MEDS: BUSPAR 5 MG PO SCH ×2 (10:18→22:15)
[2023-07-03] MEDS: NORCO 5/325 MG PO PRN ×2 (10:50→20:03)
[2023-07-03] MEDS: Docusate Sodium 100 MG PO SCH ×2 (22:00→22:14)
[2023-07-04] MEDS: NORCO 5/325 MG PO PRN ×4 (00:18→13:02)
[2023-07-04 05:43] LABS: Hematocrit 27.1 % (35-47); Hemoglobin 8.5 g/dL (12.0-16.0); Mean Cell Volume 91.2 fL (78-100); Mean Corpuscular Hemoglobin 28.6 pg (26-32); Mean Corpuscular Hgb Concent. 31.4 g/dL (32-36); Mean Platelet Volume 9.4 fL (7.5-11.0); Platelet Count 232 x10^3/uL (150-450); Red Blood Count 2.97 x10^6/uL (4.1-5.4); Red Cell Distribution Width 13.2 % (11.5-14.0); White Blood Count 12.2 x10^3/uL (4.0-10.5)
[2023-07-04] MEDS: BUSPAR 5 MG PO SCH (09:19)
[2023-07-04] MEDS: Docusate Sodium 100 MG PO SCH (09:20)
[2023-07-04] MEDS: FEOSOL 325 MG PO SCH (09:20)
--- NOTE | 2023-07-04 10:23 | PCM.NOTE ---
Date and Time: 07/04/23 1021 Subjective Assessment: pod 2 sp csection with tubal sterilization pt resting in bed and able to ambulate and tolerate diet. vss afebrile abd; soft incision c/d/intact uterus; firm lochia; mild hgb; 8.5 a/p sp csection pod 2 with tubal sterilization anemia dc home today should fu this tuesday for postop care will continue iron supplementation bid OBJECTIVE DATA Vital Signs: Vital Signs - 24 hr Temp Pulse Resp BP Pulse Ox 07/04/23 06:07 97.6 F 74 18 103/64 97 07/04/23 01:15 98.2 F 73 18 99/58 95 07/03/23 20:00 98.3 F 83 18 96/53 99 Pain Assessment - Last Documented Pain Intensity [Bilateral 6 Lower Anterior/Posterior] Pain Intensity 7 Pain Scale Used 0-10 Pain Scale Intake and Output: Intake & Output 07/01/23 07/02/23 07/03/23 07/04/23 11:59 11:59 11:59 11:59 Intake Total 3500 1000 Output Total 6600 Balance -3100 1000 Weight 78.925 kg Lab Results: Lab Results-Last 24 Hours 07/04/23 Range/Units 05:40 WBC 12.2 H (4.0-10.5) x10^3/uL RBC 2.97 L (4.1-5.4) x10^6/uL Hgb 8.5 L (12.0-16.0) g/dL Hct 27.1 L (35-47) % MCV 91.2 (78-100) fL MCH 28.6 (26-32) pg MCHC 31.4 L (32-36) g/dL RDW 13.2 (11.5-14.0) % Plt Count 232 (150-450) x10^3/uL MPV 9.4 (7.5-11.0) fL Assessment/Plan (1) Status post delivery Current Visit: Yes Status: Acute Code(s): Z98.891 - HISTORY OF UTERINE SCAR FROM PREVIOUS SURGERY (2) S/P tubal ligation Current Visit: Yes Status: Acute Code(s): Z98.51 - TUBAL LIGATION STATUS
--- NOTE | 2023-07-04 10:30 | PCM.DS ---
Discharge Summary Date of Admission: 07/02/23 03:30 Admitting Physician: BREANNE GANNON DO Consults: Consults on Case 07/02/23 05:35 Notify Physician OF ADMISSION 07/02/23 08:36 Notify Anesthesia Provider PRN Primary Care Provider: PADMINI MENDEZ BERTHA Allergies Allergies polytracin Allergy (Severe, Uncoded 07/02/23 06:33) Medication given for pink eye. Medication caused eye to swell and become more reddened. Hospital Summary - Hospital Course Hospital Course: pt presented and admitted on jul 02 at 36 4/7 wks gestation with pprom with co rupture of membrane at 1 am on jul 02 confirmed by amnisure as well as exami nation with hx of previous csection and had been scheduled for repeat csection on jul 18. pt underwent repeat csection with tubal sterilization without complication and during postop period did well able to ambulate and tolerate diet. pt was noted having hgb at 8.5 postop and was given iron supplementation. pt advised to take iron bid upon discharge and was given rx of percocet for pain management. pts incision c/d/intact. pt able to ambulate and tolerate diet. pt was advised to fu this tuesday for postop check. all questions answered to her satisfaction and at this time stable for discharge. - Vitals & Intake/Output Vital Signs: Vital Signs Temperature 97.6 F 07/04/23 06:07 Pulse Rate 74 07/04/23 06:07 Respiratory Rate 18 07/04/23 06:07 Blood Pressure 103/64 07/04/23 06:07 O2 Sat by Pulse Oximetry 97 07/04/23 06:07 Intake & Output: Intake & Output 07/01/23 07/02/23 07/03/23 07/04/23 11:59 11:59 11:59 11:59 Intake Total 3500 1000 Output Total 6600 Balance -3100 1000 Weight 78.925 kg - Lab Result Diagrams: 07/04/23 05:40 Lab Results-Last 24 Hrs: Lab Results-Last 24 Hours 07/04/23 Range/Units 05:40 WBC 12.2 H (4.0-10.5) x10^3/uL RBC 2.97 L (4.1-5.4) x10^6/uL Hgb 8.5 L (12.0-16.0) g/dL Hct 27.1 L (35-47) % MCV 91.2 (78-100) fL MCH 28.6 (26-32) pg MCHC 31.4 L (32-36) g/dL RDW 13.2 (11.5-14.0) % Plt Count 232 (150-450) x10^3/uL MPV 9.4 (7.5-11.0) fL Micro Results-Entire Visit: Microbiology 07/02/23 10:34 Urine Culture - Final Catherized NO GROWTH 07/02/23 04:05 Urine Culture - Final Urine, Void NO GROWTH - Procedures and Test Procedures and Tests throughout Hospitalization: Therapy Orders & Screens 07/02/23 10:52 Standby ROUTINE Comment: Diagnosis: OB check, R/O SROM Final Diagnosis/Problem List - Final Discharge Diagnosis/Problem (1) Status post delivery Current Visit: Yes Status: Acute Code(s): Z98.891 - HISTORY OF UTERINE SCAR FROM PREVIOUS SURGERY (2) S/P tubal ligation Current Visit: Yes Status: Acute Code(s): Z98.51 - TUBAL LIGATION STATUS - Discharge Disposition: Home, Self-Care Condition: Stable Prescriptions: New Oxycodone HCl/Acetaminophen [Percocet 5-325 mg Tablet] 1 each PO Q6H PRN PRN #26 tablet MDD 4 PRN Reason: Moderate To Severe Pain No Action Pnv No.95/Ferrous Fum/Folic AC [ Vitamin Tablet] 1 tablet PO DAILY Polyethylene Glycol 3350 [Miralax] 17 gm PO DAILY PRN PRN Reason: Constipation Metformin HCl 500 mg [Glucophage 500 MG] 500 mg PO BIDWM Non-Formulary Drug [Non-Formulary Item] 20 mg PO DAILY Follow up with: BREANNE GANNON DO [ACTIVE STAFF] - 07/08/23
[2023-07-04 14:31] VITALS: BP 98/58; PULSE 83; RESP 14; TEMP 97.7; O2SAT 96
--- NOTE | 2023-07-05 10:58 | OP ---
SURGERY DATE/TIME: 07/02/2023 1009 PREOPERATIVE DIAGNOSES: 1) Intrauterine at 36 weeks and 4 days gestation with previous section x1 with premature rupture of membranes in labor. 2) Desires tubal sterilization. POSTOPERATIVE DIAGNOSES: 1) Intrauterine at 36 weeks and 4 days gestation with previous section x1 with premature rupture of membranes in labor. 2) Desires tubal sterilization. 3) Nuchal cord x1. PROCEDURES: 1) Repeat section, low flap transverse uterine incision, Pfannenstiel skin incision. 2) Bilateral tubal sterilization. SURGEON: Sebas Benitez D.O. [employer] ROOM OPERATOR: Belgica Echeverria surgical sales representative. ANESTHESIA: Spinal. QUANTITATIVE ESTIMATED BLOOD LOSS: 729 cc. COMPLICATIONS: None. INDICATIONS: The risks, benefits, indications and alternatives of the procedure were reviewed with the patient prior to procedure. The patient understood the risk of infection, bleeding, bowel injury, bladder injury, ureteral injury, pelvic infection, thromboembolic disorder, possible future , possible ectopic that may be associated with this procedure, after all other forms of control had been discussed with her prior to the procedure. DESCRIPTION OF PROCEDURE AND FINDINGS: At this point the patient is taken to the operating room where her spinal anesthesia was found to adequate. She was then prepared and draped in normal sterile fashion in the dorsal supine position with a leftward tilt. A Pfannenstiel skin incision is made with a scalpel and carried through to the underlying layer of the fascia with a Bovie. The fascia was then incised in the midline and the incision extended laterally with Brown scissors. The superior aspect of the fascial incision was then grasped Thony clamps elevated and the underlying rectus muscles dissected off bluntly. Attention is then turned to the inferior aspect of this incision which in similar fashion was grasped, tented up with Thony clamps and the rectus muscles dissected off bluntly. The rectus muscles were then in the midline and the peritoneum identified, tented up and entered sharply with Metzenbaum scissors. The peritoneal incision was then extended superiorly and inferiorly with good visualization of the bladder. At this point the bladder blade was then inserted and the vesicouterine peritoneum identified, grasped with pickups and entered sharply with Metzenbaum scissors. This incision was then extended laterally and bladder flap created digitally. The bladder blade was then reinserted and the lower uterine segment excised in transverse fashion with a scalpel. The uterine incision was then extended laterally with bandage scissors. The bladder blade was then removed and the infants head was delivered atraumatically with noted nuchal cord x1 which was reduced. The nose and mouth were suctioned with bulb suction and the cord clamped and cut. The infant was then handed off to the awaiting nurses. The placenta was then removed manually and the uterus exteriorized and cleared of all clots and debris. The uterine incision was repaired with 1-0 chromic in running locked fashion. A second layer of the same suture was used to obtain excellent hemostasis. At this point a [place] clamp was then placed approximately 4 cm in the cornual region and a 3 cm segment of the tube was then ligated with free tie of plain gut and excised. Good hemostasis was assured. The same procedure was performed on the right tube where a [place] clamp was used the tube approximately 4 cm from the cornual region and a 3 cm segment of the tube was then ligated with tie of plain gut and excised in a similar fashion. Good hemostasis was obtained. From this point the uterus was then returned to the abdomen and the gutters were all cleared of all clots. The peritoneal muscles were closed in interrupted fashion using 2-0 chromic suture. The fascia was re-approximated with 0 Vicryl in a running fashion. The subcutaneous layer was closed with 3-0 Vicryl suture and the skin was closed with absorbable judi called INSORB. The patient tolerated the procedure well. Sponge, lap, needle and instrument counts were correct x2. The patient was then taken to the recovery room in stable condition. The patient delivered a live baby boy at 1043 hours. 's 8 at 1 minute and 9 at 5 minutes. The weight of the baby was 6 pounds 3 ounces.
== END 2023-07-04 13:20 | disposition home or self-care (01) | DRG 785 ==
LOC: UNDOADMOB 03:30 → OBSVTOIN 03:30 → OB 03:30
PROVIDERS: ADMIT Obstetrics & Gynecology; ATTEND Obstetrics & Gynecology
PROC: 10D00Z1 Extraction of Products of Conception, Low, Open Approach (ICD-10-PCS; principal; 2023-07-02)
PROC: 0UT70ZZ Resection of Bilateral Fallopian Tubes, Open Approach (ICD-10-PCS; 2023-07-02)
DX: O42.013 Preterm premature rupture of membranes, onset of labor within 24 hours of rupture, third trimester (principal); O69.81X0 Labor and delivery complicated by cord around neck, without compression, not applicable or unspecified; Z3A.36 36 weeks gestation of pregnancy; Z37.0 Single live birth; O34.211 Maternal care for low transverse scar from previous cesarean delivery; Z20.828 Contact with and (suspected) exposure to other viral communicable diseases; Z30.2 Encounter for sterilization; D64.9 Anemia, unspecified
CPT/HCPCS: 36415; 59025; 64488; 76937; 80307; 81001; 84112; 85025; 85027; 85610; 85730; 86850; 86900; 86901; 87086; 90707; 90715; 94799; 96372; 99213; J0171; J0456; J0690; J0702; J1200; J1885; J2175; J2274; J2371; J2405; J2590; J2795; L0625; A9270-GY